=== PATIENT | female | born 1975 | race Caucasian/White ===

== ENCOUNTER 2020-11-22 12:42 | Outpatient (REF) | payer OTHER, SELFPAY ==
--- NOTE | 2020-11-22 | MM_ITS ---
EXAMINATION: MM SCREENING DIGITAL BREAST TOMOSYNTHESIS, BILATERAL CLINICAL INFORMATION: Screening. Asymptomatic. The lifetime risk of breast cancer based on the Tyrer-Cuzick Model is 9%. COMPARISON: Mammography: 03/31/2019, 03/22/2018 TECHNIQUE: Digital breast tomosynthesis is performed in both the craniocaudal and mediolateral oblique views along with computer-aided detection (CAD). Synthesized 2D images are generated from the tomosynthesis. FINDINGS: There are scattered areas of fibroglandular density (ACR BI-RADS breast composition Category b). There are no significant masses, abnormal calcifications, or other abnormalities. Parenchymal pattern is similar to prior exams. The skin contours are smooth. No significant changes. MM/MM tomosynthesis screening BI IMPRESSION: No mammographic evidence of malignancy. ASSESSMENT: BI-RADS 1: Negative RECOMMENDATION: Routine annual mammography screening. This patient's information was entered into a reminder system with a target due date for their next mammogram.
== END 2020-11-22 12:43 | disposition home or self-care (01) ==
LOC: HO.MAMMO 12:42
PROVIDERS: PCP Internal Medicine; Visit Provider Internal Medicine
DX: Z12.31 Encounter for screening mammogram for malignant neoplasm of breast (principal)
CPT/HCPCS: 77063; 77067

== ENCOUNTER 2020-12-25 10:43 | Outpatient (REF) | payer OTHER, SELFPAY ==
[2020-12-25 14:46] LABS: Alanine Aminotransferase 16 U/L (0-31); Anion Gap 13 (12-20); Aspartate Amino Transferase 15 U/L (5-31); Blood Urea Nitrogen 10 mg/dL (9-16); Calcium 9.1 mg/dL (8.4-10.2); Carbon Dioxide 24 mmol/L (22-29); Chloride 103 mmol/L (96-108); Cholesterol 204 mg/dL; Estimated Glomerular Filt Rate > 60; Glucose Fasting 73 mg/dL (60-99); HDL Cholesterol 61 mg/dL; LDL Cholesterol Calculated 122 mg/dl; Potassium 4.6 mmol/L (3.3-5.1); Sodium 135 mmol/L (135-145); Triglycerides 108 mg/dL
[2020-12-25 14:53] LABS: Vitamin D 25-OH Total 21.6 ng/mL (>30)
== END 2020-12-25 10:44 | disposition home or self-care (01) ==
LOC: HO.HMGCLDS 10:43
PROVIDERS: PCP Internal Medicine; Visit Provider Internal Medicine
DX: Z00.01 Encounter for general adult medical examination with abnormal findings (principal); I10 Essential (primary) hypertension
CPT/HCPCS: 36415; 80048; 80061; 82306; 84450; 84460

== ENCOUNTER 2021-06-02 15:05 | Emergency (ER) | payer OTHER, SELFPAY ==
--- NOTE | ~2021-06-02 | US_ITS ---
EXAMINATION: US ABDOMEN LIMITED CLINICAL INFORMATION: Right upper quadrant pain. COMPARISON: None TECHNIQUE: Real-time imaging of the right upper quadrant abdominal viscera. FINDINGS: PANCREAS: Normal. LIVER: The liver is normal in size. The liver contour is normal. Parenchymal echogenicity is normal. No focal hepatic lesion. There is no intrahepatic biliary duct dilatation seen. GALLBLADDER: There is cholelithiasis. There is prominence of the gallbladder wall measuring up to 4 mm with a question of a small amount of fluid within the wall. No pericholecystic fluid. COMMON BILE DUCT: Normal in caliber measuring 0.5 cm in diameter. RIGHT KIDNEY: Normal. No hydronephrosis. No renal calculi or focal parenchymal lesions. The kidney measures 12 cm in maximum dimension. FREE FLUID: None. US/US abdomen limited IMPRESSION: There is cholelithiasis with prominence of the gallbladder wall measuring up to 4 mm with question of a small amount of fluid within the wall. No pericholecystic fluid. The findings are equivocal for cholecystitis. Correlate with clinical exam. Consider surgical consultation and HIDA scan as clinically indicated.
[2021-06-02 16:29] VITALS: BP 145/87; PULSE 69; RESP 18; TEMP 36.8; O2SAT 98; BMI 32.8
[2021-06-02 19:03] LABS: Hematocrit 45.2 % (37-47); Hemoglobin 15.5 g/dl (12.0-16.0); Mean Corpuscular HGB Conc 34.3 g/dl (31.0-35.0); Mean Corpuscular Hemoglobin 29.8 pg (27.0-33.0); Mean Corpuscular Volume 86.8 fL (80-98); Platelet Count 288 X10*3/uL (160-400); Red Blood Count 5.21 X10*6/uL (4.20-5.50); Red Cell Distribution Width 13.8 % (11.0-16.0); White Blood Count 12.9 X10*3/uL (4.8-10.8)
--- NOTE | 2021-06-02 19:05 | ED_ITS ---
HPI - Abdominal Pain General Chief Complaint: Abdominal Pain Stated Complaint: ABDOMINAL PAIN Time Seen by Provider: 06/02/21 19:03 Source: patient Mode of arrival: ambulatory Limitations: no limitations History of Present Illness HPI narrative: 45 years old female came in for evaluation of abdominal pain. Abdominal pain started since 03:00, mostly in the epigastric/right upper quadrant area with radiation to the back, pain woke the patient up from sleep, pain has been constant all day, dull aching pain is moderate 6/10, pain is associated with nausea, vomiting, decreased appetite and decreased p.o. intake. Normal bowel movement, no urinary tract symptoms. Had similar pain in the past was diagnosed with gastritis. Related Data Previous Rx's Medication Instructions Recorded cholecalciferol (vitamin D3) 1,250 1,250 mcg PO QWEEK 90 Days #13 cap 12/25/20 mcg (50,000 unit) capsule fluticasone 250 mcg-salmeterol 50 1 inh INHALATION BID #60 ea 05/21/21 mcg/dose blistr powdr for inhalation (Wixela Inhub) albuterol sulfate 90 mcg/actuation 2 puff INHALATION Q6H PRN #8.5 g 06/02/21 aerosol inhaler (ProAir HFA) ciprofloxacin HCl 500 mg tablet 500 mg PO BID #14 tab 06/02/21 (Cipro) metronidazole 500 mg tablet 500 mg PO BID #14 tab 06/02/21 (Flagyl) Allergies Allergy/AdvReac Type Severity Reaction Status Date / Time No Known Allergies Allergy Verified 12/24/20 13:13 Review of Systems Review of Systems All other systems are reviewed and are negative Constitutional: Reports as per HPI and Reports no additional constitutional complaints Eyes: Reports as per HPI and Reports no additional eye complaints Reports system reviewed and no additional complaints, except as documented Cardiovascular: Reports as per HPI and Reports no additional cardiovascular complaints Respiratory: Reports as per HPI and Reports no additional respiratory complaints Gastrointestinal: Reports as per HPI and Reports no additional gastrointestinal complaints Genitourinary: Reports no additional female genitourinary complaints Musculoskeletal: Reports no additional musculoskeletal complaints Skin/Breast: Reports system reviewed and no additional complaints, except as docu Psychiatric: Reports no additional psychiatric complaints Endocrine: Reports no additional endocrine complaints Hematologic/Lymphatic: Reports no additional hematologic/lymphatic complaints Allergic/Immunologic: Reports no additional allergic/immunologic complaints Reports system reviewed and no additional complaints, except as documented and Reports Abnormal speech present Physical Exam Vital Signs: Vital Signs: Last Vital Signs Temp 98.3 F 06/02/21 19:11 Pulse 61 06/02/21 20:08 Resp 14 06/02/21 20:08 BP 124/62 06/02/21 20:08 Pulse Ox 97 06/02/21 20:08 Body Mass Index 32.8 Vital signs have been reviewed as appeared to be correct. Blood pressure normal. Heart rate normal. Respiration rate normal. Temperature normal. Oxygen saturation normal. Appearance: Alert. Oriented X3. No acute distress. Head: Normal external exam. Normocephalic. Atraumatic. No Garcia signs noted. No raccoon eyes noted Eyes: PERRLA. EOMI. Conjunctiva and sclera normal. Eyelids normal. ENT: TM's Normal. Pharynx normal. Uvula midline. Moist mucous membranes. No trismus noted. No drooling noted. No muffled voice noted. Neck: Normal inspection. Neck supple. FROM. No adenopathy. Thyroid Normal. No meningeal signs. No neck mass noted. CVS: Normal heart rate and rhythm. Heart sound normal. No murmurs noted. Pulses normal throughout. Respiratory: No respiratory distress. Painless inspiration. Breath sounds normal. No wheezes/rales/rhonchi noted. Chest nontender. No accessory muscle usage noted or decreased air movement noted. Abdomen: Soft, moderate tenderness in the epigastric/right upper quadrant area, no guarding, no rebound tenderness. Bowel sounds normal in all 4 quadrants. No distention noted. No organomegaly noted. No visible injury noted. Back: No CVA tenderness. Full range of motion noted. Skin: Skin warm and dry. Normal skin color. Normal skin turgor. No rashes/lesions/lacerations noted. Extremities: No lower extremity edema. Extremities exhibit normal range of motion. Extremities nontender. Neuro: Oriented X 3. No motor deficit. No sensory deficit. Reflexes normal. Course Course Course Narrative: Assessment and plan. 45-year-old female came in with upper abdominal pain/right upper quadrant pain since 03:00, labs are unremarkable, physical exam/ultrasound consistent with cholelithiasis with biliary colic, ultrasound is questioning presence of cholecystitis. Will start the patient on antibiotic, the case discussed with Dr. Pollard who recommended to see the patient as an outpatient to discuss her option. Patient is able to tolerate p.o. intake. Patient agreed on the plan. MDM - Abdominal Pain Lab Data Attestation: I reviewed the patient's lab results. Result diagrams: 06/02/21 18:58 06/02/21 18:58 Labs: Lab Results 06/02/21 06/02/21 06/02/21 Range/Units 18:58 18:58 19:15 WBC 12.9 H (4.8-10.8) X10*3/uL RBC 5.21 (4.20-5.50) X10*6/uL Hgb 15.5 (12.0-16.0) g/dl Hct 45.2 (37-47) % MCV 86.8 (80-98) fL MCH 29.8 (27.0-33.0) pg MCHC 34.3 (31.0-35.0) g/dl RDW 13.8 (11.0-16.0) % Plt Count 288 (160-400) X10*3/uL MPV 11.0 (9.4-12.3) fL Absolute Nucleated RBC 0.000 (0.0-0.012) X10*3/uL Nucleated RBC % (auto) 0.0 (0.0-0.2) /100WBC Sodium 138 (135-145) mmol/L Potassium 4.3 (3.3-5.1) mmol/L Chloride 106 (96-108) mmol/L Carbon Dioxide 21 L (22-29) mmol/L Anion Gap 15 (12-20) BUN 7 L (9-16) mg/dL Creatinine 0.74 (0.5-1.4) mg/dL Estim Creat Clear Calc 112.5 Estimated GFR > 60 Random Glucose 87 (60-115) mg/dL Calcium 9.8 D (8.4-10.2) mg/dL Total Bilirubin 0.9 (0.0-1.0) mg/dL Direct Bilirubin 0.3 (0.0-0.5) mg/dL AST 14 (5-31) U/L ALT 12 (0-31) U/L Alkaline Phosphatase 82 (39-117) U/L Total Protein 7.5 (6.5-8.0) g/dL Albumin 4.7 (3.5-5.0) g/dL Lipase 9 (8-78) U/L Urine Color YELLOW Urine Appearance CLEAR Urine pH 7.0 (5.0-8.0) Ur Specific Hixson 1.025 (1.005-1.025) Urine Protein 1+ H (NEG-TRACE) MG/DL Urine Glucose (UA) NEG (NEG) MG/DL Urine Ketones NEG (NEG) MG/DL Urine Blood NEG (NEG) Urine Nitrite NEG (NEG) Ur Leukocyte Esterase 2+ H (NEG) Urine RBC 0 (0) /HPF Urine WBC 5-9 H (0-4) /HPF Ur Squamous Epith Cells 1+ /LPF Urine Bacteria 1+ /LPF Imaging Data Gallbladder ultrasound: Radiologist's impression: There is cholelithiasis with prominence of the gallbladder wall measuring up to 4 mm with question of a small amount of fluid within the wall. No pericholecystic fluid. The findings are equivocal for cholecystitis. Correlate with clinical exam. Consider surgical consultation and HIDA scan as clinically indicated. Discharge Plan Discharge Clinical Impression: Colic, biliary Cholelithiasis Qualifiers: Cholelithiasis location: gallbladder Cholecystitis presence: with cholecystitis Cholecystitis acuity: acute Biliary obstruction: without biliary obstruction Qualified Code(s): K80.00 - Calculus of gallbladder with acute cholecystitis without obstruction Patient Disposition: Home, Self-Care Instructions: Biliary Colic (ED) Prescriptions: New ciprofloxacin HCl [Cipro] 500 mg tablet 500 mg PO BID Qty: 14 RF: 0 metronidazole [Flagyl] 500 mg tablet 500 mg PO BID Qty: 14 RF: 0 No Action cholecalciferol (vitamin D3) 1,250 mcg (50,000 unit) capsule 1,250 mcg PO QWEEK 90 Days Qty: 13 RF: 0 fluticasone propion-salmeterol [Wixela Inhub] 250-50 mcg/dose blister with device 1 inh inhalation BID Qty: 60 RF: 0 albuterol sulfate [ProAir HFA] 90 mcg/actuation HFA aerosol inhaler 2 puff inhalation Q6H PRN (Reason: shortness of breath or wheezing) Qty: 8.5 RF: 5 Referrals: Roderick Pollard MD [Physician] - 2 days [facility] Past Medical History Medical History Mild intermittent asthma Obesity (BMI 30.0-34.9) Surgical History History of tonsillectomy Family History Family History Father Diabetes mellitus Dyslipidemia Cancer of prostate CVD (cardiovascular disease) HTN (hypertension) Myocardial infarction Mother Dyslipidemia Maternal Grandmother No problems noted. Maternal Grandfather Alzheimer's disease Paternal Grandmother No problems noted. Paternal Grandfather Diabetes mellitus CAD (coronary artery disease) Brother No problems noted. Son No problems noted. Daughter No problems noted. Daughter No problems noted. Daughter No problems noted. Social History Social History Alcohol intake: never Advance Directives: No Advance Directives Information Provided: Yes Patient : No
[2021-06-02 19:11] VITALS: BP 138/70; PULSE 63; RESP 18; TEMP 36.8; O2SAT 97
[2021-06-02 19:20] LABS: Glucose Urine UA NEG (NEG); Leukocyte Esterase Urine 2+ (NEG); Nitrite Urine NEG (NEG); Specific Gravity - Urine 1.025 (1.005-1.025); UACC Culture Trigger YES; Urine Blood NEG (NEG); Urine Ketones NEG (NEG); Urine Protein 1+ MG/DL (NEG-TRACE)
[2021-06-02 19:22] LABS: Appearance Urine CLEAR; Color Urine YELLOW
[2021-06-02 19:27] LABS: Bacteria Urine 1+ /LPF; RBC Urine 0 /HPF (0); Squamous Epithelial Cell Urine 1+ /LPF
[2021-06-02 19:33] LABS: Alanine Aminotransferase 12 U/L (0-31); Albumin Level 4.7 g/dL (3.5-5.0); Alkaline Phosphatase 82 U/L (39-117); Anion Gap 15 (12-20); Aspartate Amino Transferase 14 U/L (5-31); Bilirubin Direct 0.3 mg/dL (0.0-0.5); Bilirubin Total 0.9 mg/dL (0.0-1.0); Blood Urea Nitrogen 7 mg/dL (9-16); Calcium 9.8 mg/dL (8.4-10.2); Carbon Dioxide 21 mmol/L (22-29); Chloride 106 mmol/L (96-108); Creatinine Clr Calc Pharmacy 112.5; Estimated Glomerular Filt Rate > 60; Glucose Random 87 mg/dL (60-115); Lipase 9 U/L (8-78); Potassium 4.3 mmol/L (3.3-5.1); Sodium 138 mmol/L (135-145); Total Protein 7.5 g/dL (6.5-8.0)
[2021-06-02 20:08] VITALS: BP 124/62; PULSE 61; RESP 14; O2SAT 97
[2021-06-02] MEDS: Morphine Sulfate 2 MG/ML CARTRIDGE 1 MG IVPUSH (20:15)
[2021-06-02] MEDS: Ketorolac Tromethamine 15 MG/ML VIAL IVPUSH (20:15)
== END 2021-06-02 21:28 | disposition home or self-care (01) ==
PROVIDERS: Emergency Provider Emergency Medicine; PCP Internal Medicine
DX: K80.00 Calculus of gallbladder with acute cholecystitis without obstruction (principal)
CPT/HCPCS: 36415; 76705; 80048; 80076; 81001; 83690; 85027; 87086; 96374; 96375; 99284; J1885; J2270

== ENCOUNTER → 2021-06-26 15:57 | Outpatient (BNVA) | payer OTHER, SELFPAY | PROVIDERS: PCP Internal Medicine; Referring Provider Internal Medicine; Visit Provider Surgery ==

== ENCOUNTER 2021-08-04 06:00 | Day surgery (SDC) | payer OTHER, SELFPAY ==
[2021-07-29 09:52] VITALS: BMI 31.7
[2021-08-04] VITALS (8 sets, daily range): BP systolic 102–119; BP diastolic 61–83; PULSE 61–77; RESP 14–16; TEMP 36.4; O2SAT 93–98
[2021-08-04 06:28] LABS: UPreg QC Valid YES; Urine Pregnancy NEGATIVE (NEGATIVE)
[2021-08-04] MEDS: Lactated Ringers 1,000 ML 100 ML IVCONT (06:43)
--- NOTE | 2021-08-04 07:07 | P.CONAN_ITS ---
HPI - Anesthesia Eval Consult details Narrative: baseline cond [facility] Active Problems Active Problems: All Active Problems (Updated 07/29/21 @ 09:49 by Letha Shannon RN) Right upper quadrant pain (Acute) Cholecystitis (Acute) Obesity (BMI 30.0-34.9) (Acute) Mild intermittent asthma (Acute) Past Medical History Medical History COVID-19 vaccine series completed Mild intermittent asthma Obesity (BMI 30.0-34.9) Family History Family History Father Diabetes mellitus Dyslipidemia Cancer of prostate CVD (cardiovascular disease) HTN (hypertension) Myocardial infarction Mother Dyslipidemia Maternal Grandmother No problems noted. Maternal Grandfather Alzheimer's disease Paternal Grandmother No problems noted. Paternal Grandfather Diabetes mellitus CAD (coronary artery disease) Brother No problems noted. Son No problems noted. Daughter No problems noted. Daughter No problems noted. Daughter No problems noted. Surgical History Surgical History History of tonsillectomy Social History Social History Alcohol intake: never Advance Directives Information Provided: Yes (informational brochure mailed) Recently lost weight without trying: No Eating poorly because of decreased appetite: No Nutrition Risks: No Nutritional Risk Meds Allergies Allergy/AdvReac Type Severity Reaction Status Date / Time No Known Allergies Allergy Verified 06/19/21 16:19 Active Medications: Current Medications Lactated Ringer's (Lr) 1,000 mls @ 100 mls/hr IVCONT .Q10H JOHN PAUL Last Admin: 08/04/21 06:43 Dose: 100 mls/hr Documented by: Exam Exam Date and Time: August 04, 2021 0707 Height,Weight and Vital Signs: Height 5 ft 7 in Weight 92 kg Last Vital Signs Temp 97.6 F 08/04/21 06:38 Pulse 66 08/04/21 06:38 Resp 16 08/04/21 06:38 BP 105/66 08/04/21 06:38 Pulse Ox 97 08/04/21 06:38 Pertinent Lab Results Pertinent Lab Results: Laboratory Tests 08/04/21 06:10 Urine Test NEGATIVE Airway Mallampati Class: I TM Dist: >3cm Neck ROM: Full
--- NOTE | 2021-08-04 07:27 | MHC.SHP ---
Pre-Procedural Eval Section A Date of Service: 08/04/21 The patient is an INPATIENT: No Changes since office visit: Yes Patient answered all questions; No Cold of Flu in the past 2 weeks, No New Medical Problems and No Changes in Medication The History & Physical has been completed within 30 days and I have reviewed it.: Yes Section B Chief Complaint: Acute cholecystitis Allergies: Allergies Allergy/AdvReac Type Severity Reaction Status Date / Time No Known Allergies Allergy Verified 06/19/21 16:19 Plan Diagnosis/Plan: Unchanged I have reviewed the history and physical and performed a pertinent physical examination on my patient. No changes have occurred unless specified.
--- NOTE | 2021-08-04 09:03 | P.OP_ITS ---
Operative Note Operative Note Date of Service: 08/04/21 Narrative: Preoperative diagnosis: Cholecystitis, cholelithiasis Postoperative diagnosis: Same Procedure: Laparoscopic cholecystectomy Surgeon: Roderick Pollard MD Senior Sustainability Consultant: EDEN Gonzalez Anesthesia: General endotracheal Indications for procedure: 45-year-old female patient presenting with a single episode of abdominal pain in the right upper quadrant presenting to the emergency department with severe pain. Workup in the emergency department revealed a thickened gallbladder with multiple gallstones within the gallbladder wall. Findings were suggestive of acute cholecystitis. Operative findings: Patient was found to have a markedly inflamed gallbladder with edematous wall and multiple gallstones within the gallbladder. Findings are consistent with acute cholecystitis Specimen: Gallbladder Estimated blood loss: 5 mL Complications: None Procedure details: Patient was brought to the OR and placed in a supine position. After administering general anesthesia the patient's abdomen was prepped with ChloraPrep and draped in a sterile fashion. Local anesthesia consisting of 0.25% Sensorcaine without epinephrine was infiltrated in a periumbilical region. A 5 mm incision was made above the umbilicus in a transverse fashion. The Veress needle was then inserted while elevating abdominal cavity with towel clips. After positive drop test the abdomen was insufflated to a pressure of 15 mm of mercury. The Veress needle was then removed and a 5 mm trocar inserted. The camera was inserted in the abdomen explored. A 12 mm trocar was then placed in the epigastrium and two 5 mm trocars placed in the right upper quadrant. The patient was placed in reverse Trendelenburg positioning and rotated to the left. The gallbladder was grasped with the fundus and retracted cephalad. The infundibulum was then grasped and retracted away from the liver bed. The Dolphin dissected was then used to dissect the peritoneum off the infundibulum to reveal the junction with the cystic duct. Cystic artery was noted slightly medial and posterior to the cystic duct. After obtaining a critical view the cystic duct was doubly clipped and divided. The cystic artery was then doubly clipped and divided. The gallbladder was then dissected off the liver bed using electrocautery with an L hook. Hemostasis was assured all times using the electrocautery. When the gallbladder is completely dissected off the liver bed was placed in an Endo-Catch bag and brought out through the epigastric incision. The gallbladder was sent to pathology for further examination. The abdomen was then re-examined. The liver bed was irrigated and suctioned dry. No bleeding or bile leak could be identified. CO2 was then evacuated and all trocars removed. Fascia was closed at the epigastric incision using a [id number] 0 Polysorb suture. Skin was closed in all incisions using a subcuticular 4 0 Polysorb suture. Sterile dressings consisting of Steri-Strips, 2 x 2 gauze, and Tegaderm were then applied. The patient tolerated the procedure well. Sponge instrument and needle counts reported as correct. The patient was transferred to PACU in stable condition.
[2021-08-04] MEDS: fentaNYL citrate/PF 100 MCG/2 ML VIAL 50 MCG IVPUSH ×2 (09:25→09:35)
[2021-08-04] MEDS: oxyCODONE HCl Immed Release 5 MG TABLET PO (09:26)
== END 2021-08-04 11:03 | disposition home or self-care (01) ==
PROVIDERS: Anesthesiology; PCP Internal Medicine; Visit Provider Surgery
PROC: 0FT44ZZ Resection of Gallbladder, Percutaneous Endoscopic Approach (ICD-10-PCS; CPT 47562; principal; 2021-08-04 07:30)
DX: K80.12 Calculus of gallbladder with acute and chronic cholecystitis without obstruction (principal); J45.20 Mild intermittent asthma, uncomplicated
CPT/HCPCS: 47562; 81025; 88304; J1100; J1170; J2250; J2405; J3010

== ENCOUNTER → 2021-08-14 10:56 | Outpatient (BNVA) | payer OTHER, SELFPAY | PROVIDERS: PCP Internal Medicine; Referring Provider Internal Medicine; Visit Provider Surgery ==

== ENCOUNTER 2022-01-02 09:13 | Outpatient (REF) | payer OTHER, SELFPAY ==
--- NOTE | ~2022-01-02 | MM_ITS ---
EXAMINATION: MM SCREENING DIGITAL BREAST TOMOSYNTHESIS, BILATERAL CLINICAL INFORMATION: Screening. Asymptomatic. The lifetime risk of breast cancer based on the Tyrer-Cuzick Model is 9%. COMPARISON: Mammography: 11/22/2020, 03/31/2019, 03/22/2018, 03/19/2017, 03/06/2016, 02/22/2015 (baseline). TECHNIQUE: Digital breast tomosynthesis is performed in both the craniocaudal and mediolateral oblique views along with computer-aided detection (CAD). Synthesized 2D images are generated from the tomosynthesis. Additional left CC view is provided. FINDINGS: There are scattered areas of fibroglandular density (ACR BI-RADS breast composition Category b). Right breast is unremarkable. There is no developing density or interval mass or architectural abnormality. Neither breast shows abnormal calcifications. The bilateral axilla and skin contours are unremarkable. Left CC view has questionable architectural changes mid outer breast 9.5 cm from nipple. There is no MLO correlate. Finding appears changed from most recent prior exam but may be chronic shifting fibroglandular density when compared with more remote prior mammography. Patient will be recalled for additional imaging. MM/MM tomosynthesis screening BI IMPRESSION: 1. Left: Question of architectural changes mid outer quadrant limited to CC view. 2. Right: No mammographic evidence of malignancy. ASSESSMENT: BI-RADS 0: Incomplete - Need Additional Imaging Evaluation RECOMMENDATION: 1. Additional views of the left breast (rolled CC x2, spot CC). 2. Targeted ultrasound if warranted after review of the additional views. 3. Radiology department staff will contact the patient for additional imaging. This patient's information was entered into a reminder system with a target due date for their next mammogram.
== END 2022-01-02 09:14 | disposition home or self-care (01) ==
LOC: HO.MAMMO 09:13
PROVIDERS: PCP Internal Medicine; Visit Provider Internal Medicine
DX: Z12.31 Encounter for screening mammogram for malignant neoplasm of breast (principal)
CPT/HCPCS: 77063; 77067

== ENCOUNTER 2022-01-16 14:03 | Outpatient (REF) | payer OTHER, SELFPAY ==
--- NOTE | ~2022-01-16 | MM_ITS ---
EXAMINATION: MM DIAGNOSTIC DIGITAL BREAST TOMOSYNTHESIS, LEFT CLINICAL INFORMATION: Recall from screening for question of architectural changes mid outer left breast on CC view. Age 46. TC score 9%. COMPARISON: Mammography: 01/02/2022, 11/22/2020, 03/31/2019, 03/22/2018, 03/19/2017, 03/06/2016, 02/22/2015 TECHNIQUE: Digital breast tomosynthesis is performed. 2D images are generated from the tomosynthesis. The following views are obtained: Rolled CC x2, spot CC. FINDINGS: There are scattered areas of fibroglandular density (ACR BI-RADS breast composition Category b). The additional views show no focal architectural changes. There is no definite developing density from prior studies. No mass. Results are discussed with the patient at time of visit. The additional views show no focal architectural changes. As a precaution, short interval six-month follow-up left mammography is suggested to exclude remote possibility of an occult developing density. MM/MM tomosynthesis added views L IMPRESSION: Additional views show no definite changes from prior studies. ASSESSMENT: BI-RADS 3: Probably Benign RECOMMENDATION: Diagnostic left mammography in 6 months. This patient's information was entered into a reminder system with a target due date for their next mammogram.
== END 2022-01-16 14:04 | disposition home or self-care (01) ==
LOC: HO.MAMMO 14:03
PROVIDERS: PCP Internal Medicine; Visit Provider Internal Medicine
DX: N64.89 Other specified disorders of breast (principal)
CPT/HCPCS: 77061; 77065

== ENCOUNTER 2022-11-17 13:03 | Emergency (ER) | payer OTHER, SELFPAY ==
--- NOTE | ~2022-11-17 | XR_ITS ---
EXAMINATION: XR KNEE, RIGHT CLINICAL INFORMATION: Right knee pain. COMPARISON: None TECHNIQUE: Four views of the right knee. FINDINGS: Mild tricompartmental degenerative joint changes are seen. There is no acute fracture, dislocation or joint effusion. The soft tissues are unremarkable. XR/XR knee RT 4V IMPRESSION: Mild tricompartmental degenerative joint changes. No acute fracture.
[2022-11-17 14:21] VITALS: BP 122/58; PULSE 69; RESP 18; TEMP 36.3; O2SAT 96; BMI 32.8
--- NOTE | 2022-11-17 14:23 | ED_ITS ---
HPI - General Adult General Chief complaint: Extremity Injury, Lower <BHARTI Power - Last Filed: 11/17/22 19:49> Stated complaint: R knee pain <BHARTI Power - Last Filed: 11/17/22 19:49> Time Seen by Provider: 11/17/22 14:53 <BHARTI Power - Last Filed: 11/17/22 19:49> Source: patient <BHARTI Mayes Last Filed: 11/17/22 17:43> Mode of arrival: ambulatory <BHARTI Mayes Last Filed: 11/17/22 17:43> Limitations: no limitations <BHARTI Mayes Last Filed: 11/17/22 17:43> History of Present Illness HPI narrative: Patient is a 46 year old assigned female at with no reported medical history presenting to the emergency department today with right knee pain. Patient states that she doesn't remember doing anything specifically to the right knee but over the last week it has gotten progressively worse. Patient denies any dizziness, lightheadedness, abdominal pain, nausea, vomiting, fever, chills, blurry vision, double vision, loss of vision, chest pain, difficulty breathing, shortness of breath, back pain, night sweats, pain with urination, increased urinary frequency, increased urinary urgency, blood in her urine or stool, syncope or a near syncopal episode, recent trauma or falls, bowel incontinence, bladder incontinence, bowel retention, bladder retention, or any other complaints at this time. Patient states that she is a [employer] and is on her feet all the time. <BHARTI Mayes - Last Filed: 11/17/22 17:43> Onset (ago): week(s) (1) <BHARTI Mayes - Last Filed: 11/17/22 17:43> Location: right and lower extremity <BHARTI Mayes Last Filed: 11/17/22 17:43> Radiation: non-radiation <BHARTI Mayes Last Filed: 11/17/22 17:43> Severity: mild <BHARTI Mayes Last Filed: 11/17/22 17:43> Severity scale (1-10): 3 <BHARTI Mayse Last Filed: 11/17/22 17:43> Quality: aching <BHARTI Mayes - Last Filed: 11/17/22 17:43> Pain Consistency: constant <BHARTI Mayes - Last Filed: 11/17/22 17:43> Relieving factors: none <BHARTI Mayes - Last Filed: 11/17/22 17:43> Exacerbating factors: none <BHARTI Mayes - Last Filed: 11/17/22 17:43> Associated symptoms: denies other symptoms <BHARTI Mayse - Last Filed: 11/17/22 17:43> Treatments prior to arrival: none <BHARTI Mayes - Last Filed: 11/17/22 17:43> Related Data Home medications: Previous Rx's Medication Instructions Recorded oxycodone 5 mg tablet 5 mg PO Q6H PRN pain #15 tabs 08/04/21 fluticasone 250 mcg-salmeterol 50 1 inh inhalation BID #180 ea 09/15/22 mcg/dose blistr powdr for inhalation (Wixela Inhub) albuterol sulfate 90 mcg/actuation 2 puff inhalation Q6H PRN 10/21/22 aerosol inhaler (ProAir HFA) shortness of breath or wheezing #8.5 grams prednisone 20 mg tablet 20 mg PO DAILY 7 days #7 tabs 11/17/22 <BHARTI Power - Last Filed: 11/17/22 19:49> Allergies/adverse reactions: Allergies Allergy/AdvReac Type Severity Reaction Status Date / Time No Known Allergies Allergy Verified 06/19/21 16:19 <BHARTI Power - Last Filed: 11/17/22 19:49> Review of Systems Constitutional: Constitutional: Reports no additional constitutional complaints, Denies chills, Denies fever(s) and Denies night sweats <BHARTI Mayes - Last Filed: 11/17/22 17:43> Eyes: Eyes: Reports no additional eye complaints, Denies blurry vision, Denies change in vision, Denies diplopia, Denies eye discharge, Denies loss of vision and Denies eye pain <BHARTI Mayes Last Filed: 11/17/22 17:43> ENT: Denies dizziness <BHARTI Mayes - Last Filed: 11/17/22 17:43> Cardiovascular: Cardiovascular: Reports no additional cardiovascular complaints, Denies chest pain, Denies lightheadedness, Denies Loss of Consciousness and Denies dyspnea <BHARTI Mayes - Last Filed: 11/17/22 17:43> Respiratory: Respiratory: Reports no additional respiratory complaints and Denies dyspnea <BHARTI Mayes - Last Filed: 11/17/22 17:43> Gastrointestinal: Gastrointestinal: Reports no additional gastrointestinal complaints, Denies abdominal pain, Denies melena, Denies hematochezia, Denies change in bowel habits and Denies change in stool character <BHARTI Mayes - Last Filed: 11/17/22 17:43> Genitourinary: Genitourinary: Denies hematuria, Denies urinary frequency, Denies dysuria, Denies urinary incontinence, Denies urinary hesitancy and Denies urinary urgency <BHARTI Mayes - Last Filed: 11/17/22 17:43> Musculoskeletal: Musculoskeletal: Reports no additional musculoskeletal complaints, Denies numbness and Denies tingling <BHARTI Mayes - Last Filed: 11/17/22 17:43> Comments: right knee pain <BHARTI Mayes - Last Filed: 11/17/22 17:43> Neurologic: Denies dizziness, Denies loss of vision, Denies numbness and Denies tingling <BHARTI Mayes - Last Filed: 11/17/22 17:43> Psychiatric: Psychiatric: Reports no additional psychiatric complaints <BHARTI Mayes - Last Filed: 11/17/22 17:43> Endocrine: Endocrine: Reports no additional endocrine complaints <BHARTI Mayes - Last Filed: 11/17/22 17:43> Hematologic/Lymphatic: Hematologic/Lymphatic: Reports no additional hematologic/lymphatic complaints <BHARTI Mayes - Last Filed: 11/17/22 17:43> Allergic/Immunologic: Allergic/Immunologic: Reports no additional allergic/immunologic complaints <BHARTI Mayes - Last Filed: 11/17/22 17:43> PMFSH Past Medical History Attestation statement: The following information was validated with the patient. <BHARTI Mayes - Last Filed: 11/17/22 17:43> Source: old records reviewed and nursing notes reviewed <BHARTI Mayes - Last Filed: 11/17/22 17:43> Medical History: Medical History COVID-19 vaccine series completed Mild intermittent asthma Obesity (BMI 30.0-34.9) <BHARTI Power - Last Filed: 11/17/22 19:49> Surgical History: Surgical History History of tonsillectomy <BHARTI Power - Last Filed: 11/17/22 19:49> Family History Family History: Family History Father Diabetes mellitus Dyslipidemia Cancer of prostate CVD (cardiovascular disease) HTN (hypertension) Myocardial infarction Mother Dyslipidemia Maternal Grandmother No problems noted. Maternal Grandfather Alzheimer's disease Paternal Grandmother No problems noted. Paternal Grandfather Diabetes mellitus CAD (coronary artery disease) Brother No problems noted. Son No problems noted. Daughter No problems noted. Daughter No problems noted. Daughter No problems noted. <BHARTI Power - Last Filed: 11/17/22 19:49> Social History Social History: Social History Alcohol intake: never Smoked in Last 30 Days: Yes Advance Directives: No Advance Directives Information Provided: Yes Patient : No <BHARTI Power - Last Filed: 11/17/22 19:49> Physical Exam ED Vital Signs: Vital Signs - 24 hr 11/17/22 14:21 11/17/22 15:07 Temperature 97.3 F 98.3 F Pulse Rate 69 Respiratory Rate 18 18 Blood Pressure 122/58 L 129/71 Pulse Oximetry 96 98 Oxygen Delivery Method Room Air Room Air BMI result Body Mass Index 32.8 <BHARTI Power - Last Filed: 11/17/22 19:49> Vital Signs - 24 hr 11/17/22 14:21 11/17/22 15:07 Temperature 97.3 F 98.3 F Pulse Rate 69 Respiratory Rate 18 18 Blood Pressure 122/58 L 129/71 Pulse Oximetry 96 98 Oxygen Delivery Method Room Air Room Air BMI result Body Mass Index 32.8 <BHARTI Mayes - Last Filed: 11/17/22 17:43> Const General: cooperative, no acute distress, alert and awake <BHARTI Mayes - Last Filed: 11/17/22 17:43> Nutritional Appearance: well nourished <BHARTI Mayes - Last Filed: 11/17/22 17:43> Orientation/consciousness: patient oriented x3 <BHARTI Mayes - Last Filed: 11/17/22 17:43> Limitations: no limitations <BHARTI Mayes - Last Filed: 11/17/22 17:43> HENMT Head: Yes normal to inspection and Yes atraumatic <BHARTI Mayes - Last Filed: 11/17/22 17:43> Ears: hearing grossly normal bilaterally and external ears normal <BHARTI Mayes - Last Filed: 11/17/22 17:43> General nose exam: Normal external nose present, no nasal discharge noted and no epistaxis <BHARTI Mayes - Last Filed: 11/17/22 17:43> Face and sinus: Yes normal facial exam, No abrasion and No laceration <BHARTI Mayes - Last Filed: 11/17/22 17:43> Mouth: Normal oral and palatal mucosa present, no drooling and no muffled voice <BHARTI Mayes - Last Filed: 11/17/22 17:43> Eyes General: appearance normal, both eyes and all related structures <BHARTI Mayes - Last Filed: 11/17/22 17:43> Periorbital: periorbital findings normal <BHARTI Mayes - Last Filed: 11/17/22 17:43> Eyelids: Yes eyelids normal <BHARTI Mayes - Last Filed: 11/17/22 17:43> Conjunctivae: conjunctivae normal <BHARTI Mayes - Last Filed: 11/17/22 17:43> Pupils: Equal, round and reactive pupils present <BHARTI Mayes - Last Filed: 11/17/22 17:43> EOM: EOMs intact bilaterally <BHARTI Mayes - Last Filed: 11/17/22 17:43> Neck Neck: Yes normal visual inspection, Yes full ROM and Yes no lymphadenopathy <Kylah Chahal PA - Last Filed: 11/17/22 17:43> Chest Chest palpation & inspection: normal inspection of the chest <Kylah Chahal PA - Last Filed: 11/17/22 17:43> Resp Effort & Inspection: normal respiratory effort and able to speak in complete sentences <Kylah Chahal PA - Last Filed: 11/17/22 17:43> Auscultation: clear to auscultation bilaterally <Kylah Chahal PA - Last Filed: 11/17/22 17:43> Cardio Rate: regular rate <Kylah Chahal PA - Last Filed: 11/17/22 17:43> Rhythm: regular rhythm <Kylah Chahal PA - Last Filed: 11/17/22 17:43> GI Inspection: Yes normal to inspection <Kylah ChahalBHARTI - Last Filed: 11/17/22 17:43> Palpation (GI): Soft to palpation, not firm, nontender, no guarding and not rigid <Kylah Chahal PA - Last Filed: 11/17/22 17:43> Neuro General: patient oriented x3 and moves all extremities <Kylah Ramirezjean PA - Last Filed: 11/17/22 17:43> Cranial nerves: Yes Equal, round and reactive pupils present <Kylah Chahal PA - Last Filed: 11/17/22 17:43> Cognition (Neuro): normal cognition <Kylah Ramirezjean PA - Last Filed: 11/17/22 17:43> Motor exam (neuro): 5/5 motor strength present throughout <Kylah Chahal PA - Last Filed: 11/17/22 17:43> Sensory Exam: Normal double simultaneous stimulation for sensation <Kylah Ramirezjean PA - Last Filed: 11/17/22 17:43> Coordination: [id number] test normal <Kylah Chahal PA - Last Filed: 11/17/22 17:43> Extrem Other: palpated a cystic structre in the right posterior knee, consistent with a bakers cyst <Kylah Tirso PA - Last Filed: 11/17/22 17:43> General: Yes normal to inspection, Yes full ROM and Yes capillary refill normal <BHARTI Mayes - Last Filed: 11/17/22 17:43> Psych Appearance: grossly normal <BHARTI Mayes - Last Filed: 11/17/22 17:43> Mental Status: mental status grossly normal <BHARTI Mayes Last Filed: 11/17/22 17:43> Affect: normal affect <BHARTI Mayes - Last Filed: 11/17/22 17:43> Attitude: cooperative <BHARTI Mayes - Last Filed: 11/17/22 17:43> Thought process: Normal thought process present <BHARTI Mayes Last Filed: 11/17/22 17:43> Thought content: Normal thought content present <BHARTI Mayes Last Filed: 11/17/22 17:43> Insight: Good insight present (Psych) <BHARTI Mayes Last Filed: 11/17/22 17:43> Course Course Course Narrative: RME: RIght knee pain for one week without any trauma. negative for any swelling, redness, fever, chills, calf pain, or leg swelling. Knee xray ordered <BHARTI Power - Last Filed: 11/17/22 19:49> Medical Decision Making Medical Decision Making MDM Narrative: Patient is a 46 year old assigned female at with no reported medical history presenting to the emergency department today with right knee pain. Patient's physical exam showed a cyst like structure to the posterior right knee, consistent with a bakers cyst. Patient's right knee x-ray showed no acute process. I explained my physical exam findings as well as all test results to the patient. I answered all questions asked by the patient. I stressed the importance of the patient taking her medication as prescribed. I stressed the importance of the patient following up with her primary care provider and an orthopedic provider. I stressed the importance of the patient returning to the emergency department immediately if her symptoms were to worsen or if she were to develop any dizziness, shortness of breath, difficulty breathing, chest pain, blurry vision, loss of vision, nausea, vomiting, abdominal pain, fever, chills, back pain, or any other complaints. Patient verbalized agreement and understanding with this treatment plan and discharge. <BHARTI Mayes Last Filed: 11/17/22 17:43> Differential Diagnosis Differential Diagnoses: The differential diagnosis associated with the presentation includes <BHARTI Mayes Last Filed: 11/17/22 17:43> metz's cyst <BHARTI Mayes Last Filed: 11/17/22 17:43> Radiology Impression Discussion of test interpretation with radiology: I have reviewed the radiologist's reading. <BHARTI Mayes Last Filed: 11/17/22 17:43> Radiologist Impression: My interpretation is in agreement with the radiologist's impression of this imaging study. EXAMINATION: XR KNEE, RIGHT? CLINICAL INFORMATION: Right knee pain.? COMPARISON: None? TECHNIQUE: Four views of the right knee. FINDINGS: Mild tricompartmental degenerative joint changes are seen. There is no acute fracture, dislocation or joint effusion. The soft tissues are unremarkable.? XR/XR knee RT 4V IMPRESSION: Mild tricompartmental degenerative joint changes. No acute fracture. ? Dictated By: Jose Elizabeth MD Signed By: Electronically signed by Jose Elizabeth MD 11/17/22 1538 <BHARTI Mayes Last Filed: 11/17/22 17:43> Discharge Plan Discharge Clinical Impression: Metz cyst <BHARTI Power Last Filed: 11/17/22 19:49> Patient Disposition: Home, Self-Care <BHARTI Power Last Filed: 11/17/22 19:49> Instructions: Bakers Cyst (ED) <BHARTI Power Last Filed: 11/17/22 19:49> Additional Instructions: Follow up with your primary care provider and an orthopedic provider. Return to the emergency department immediately if your symptoms worsen or if you develop any dizziness, shortness of breath, difficulty breathing, chest pain, blurry vision, loss of vision, nausea, vomiting, abdominal pain, fever, chills, back pain, or any other complaints. <BHARTI Power - Last Filed: 11/17/22 19:49> Prescriptions: New prednisone 20 mg tablet 20 mg PO DAILY 7 Days Qty: 7 0RF No Action fluticasone propion-salmeterol [Wixela Inhub] 250-50 mcg/dose blister with device 1 inh inhalation BID Qty: 180 0RF albuterol sulfate [ProAir HFA] 90 mcg/actuation HFA aerosol inhaler 2 puff inhalation Q6H PRN (Reason: shortness of breath or wheezing) Qty: 8.5 5RF oxycodone 5 mg tablet 5 mg PO Q6H PRN (Reason: pain) Qty: 15 0RF <BHARTI Power - Last Filed: 11/17/22 19:49> Referrals: [facility] [place] [facility] [Provider Group] (Call to establish and follow up with an orthopedic provider. ) Karuna Manning MD [Primary Care Provider] - <BHARTI Power - Last Filed: 11/17/22 19:49> Stand Alone Forms: Work/School Release <BHARTI Power - Last Filed: 11/17/22 19:49> Interventions: ED Discharge Assessment Last Done: 11/17/22 15:29 <BHARTI Power - Last Filed: 11/17/22 19:49> Discharge Date/Time: 11/17/22 15:30 <BHARTI Power - Last Filed: 11/17/22 19:49> Print Language: Kiswahili <BHARTI Power - Last Filed: 11/17/22 19:49>
[2022-11-17 15:07] VITALS: BP 129/71; RESP 18; TEMP 36.8; O2SAT 98
== END 2022-11-17 15:30 | disposition home or self-care (01) ==
PROVIDERS: Emergency Provider Emergency Medicine; PCP Internal Medicine
DX: M71.21 Synovial cyst of popliteal space [Baker], right knee (principal); M25.561 Pain in right knee
CPT/HCPCS: 73564; 99283; 99284

== ENCOUNTER 2022-12-18 12:34 | Outpatient (AMB) | payer OTHER, SELFPAY ==
--- NOTE | 2022-12-18 12:39 | A.OFFPC_ITS ---
Vital Signs 12/18/22 12:40 Height 5 ft 7 in Weight 214 lb BMI 33.5 BP 100/70 Blood Pressure Location Rt brachial Position Sitting Pulse 75 Pulse Source Pulse Oximeter Pulse Oximetry (%) 96 Oxygen Delivery Method Room Air Intake Visit Reasons: Physical exam Intake Note: Pt is here today for PE Is last menstrual period known: Yes Last menstrual period: 12/08/22 Allergies No Known Allergies Allergy (Verified 10/05/23 03:24) Medication List - Last Reconciled 12/18/22 by Karuna Manning MD albuterol sulfate 90 mcg/actuation (ProAir HFA) 2 puffs inhalation Q6H PRN fluticasone propion-salmeterol 250-50 mcg/dose (Wixela Inhub) 1 inh inhalation BID Tobacco use date assessed: 12/18/22 HPI Physical exam HPI Details 46 year old lady , here for her physical exam. She has mild intermittent asthma , currently controlled with present medication. Completed h er COVID vaccine including the booster and has had her flu shot, but does not want to get the pneumonia vaccine.. She is up-to-date with cervical cancer screening, done in 2019. Up-to-date with her screening mammogram, due again later this year. [facility] Medical History Chronic heartburn Family history of colon cancer in father Colon cancer screening COVID-19 vaccine series completed Obesity (BMI 30.0-34.9) Mild intermittent asthma Surgical History History of tonsillectomy Family History Father Diabetes mellitus Dyslipidemia Cancer of prostate CVD (cardiovascular disease) HTN (hypertension) Myocardial infarction Colon cancer Mother Dyslipidemia Maternal Grandmother No problems noted. Maternal Grandfather Alzheimer's disease Paternal Grandmother No problems noted. Paternal Grandfather Diabetes mellitus CAD (coronary artery disease) Brother No problems noted. Son No problems noted. Daughter No problems noted. Daughter No problems noted. Daughter No problems noted. 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 1. Little interest or pleasure in doing things: not at all 2. Feeling down, depressed, or hopeless: not at all 3. Trouble falling or staying asleep, or sleeping too much: not at all 4. Feeling tired or having little energy: not at all 5. Poor appetite or overeating: not at all 6. Feeling bad about yourself - or that you are a failure or have let yourself or your family down: not at all 7. Trouble concentrating on things, such as reading the newspaper or watching television: not at all 8. Moving or speaking so slowly that other people could have noticed. Or the opposite - being so fidgety or restless that you have been moving around a lot more than usual: not at all 9. Thoughts that you would be better off or of hurting yourself in some way: not at all Total score: 0 Depression Screening Interpretation: Negative 82704 - PHQ-9 Billing: Yes Source: Developed by Drs. Oz Brunson, Amparo Verdugo, Reinaldo Yeung and colleagues, with an educational lizzy from [employer]. Thrive Questionnaire Declines Thrive assessment: No Date Thrive assessed: 12/18/22 I am a: Patient What is your living situation today?: I have a steady place to live Within the past 12 months, did the food you bought not last and you didn't have the money to get more?: Never true Within the past 12 months, did you worry whether your food would run out before you got money to buy more?: Never true Do you have trouble paying for medicines?: No Do you have trouble getting transportation to medical appointments?: No Do you have trouble paying your heating and electricity bill?: No Do you have trouble taking care of your child, family member or friend?: No Do you have trouble with day-to-day activities such as bathing, preparing meals, shopping, managing finances, etc.?: No Are you currently unemployed and looking for a job?: No Are you interested in more education?: No AUDIT C Alcohol Use Questionnaire (AUDIT-C) 1. How often do you have a drink containing alcohol?: Never Total Score: 0 LIS-7 AMB Questionnaire LIS-7 Date LIS - 7 assessed: 12/18/22 Feeling nervous, anxious, or on edge: 0 = Not at all Not being able to stop or control worryin = Not at all Worrying too much about different things: 0 = Not at all Trouble relaxin = Not at all Being so restless that it is hard to sit still: 0 = Not at all Becoming easily annoyed or irritable: 0 = Not at all Feeling afraid as if something awful might happen: 0 = Not at all Total LIS-7 score (0-4 normal; 5-9 mild; 10-14 moderate; 15-21 severe): 0 Source: Developed by Drs. Oz Brunson, Amparo Verdugo, Reinaldo Yeung and colleagues, with an educational lizzy from [employer]. LIS-7 Assessment Billing LIS-7 Assessment Tool: LIS-7 Assessment 64232 ACT Questionnaire In the past 4 weeks, how much of the time did your asthma keep you from getting as much done at work, school or at home?: None of the time During the past 4 weeks, how often have you had shortness of breath?: 1-2 times a week During the past 4 weeks, how often did your asthma symptoms wake you up at night or earlier than usual in the morning?: Not at all During the past 4 weeks, how often have you had to use your rescue inhaler or nebulizer medication?: Once a week or less How would you rate your asthma control during the past 4 weeks?: Well controlled Score: 22 Review of Systems Const Denies body aches, Denies fatigue, Denies fever(s), Denies headache(s) and Denies weakness Eyes Denies change in vision ENT Denies dizziness, Denies headache(s), Denies nasal congestion, Denies nasal discharge and Denies sore throat Card Denies chest pain, Denies lightheadedness, Denies palpitations and Denies dyspnea Resp Denies chest congestion, Denies cough, Denies dyspnea and Denies wheezing GI Denies abdominal pain, Denies change in bowel habits and Denies heartburn Denies urinary frequency, Denies dysuria and Denies urinary urgency Musc Denies back pain, Denies arthralgias, Denies joint swelling and Denies muscle weakness Skin/Breast Denies lesions and Denies rash Neuro Denies dizziness, Denies headache(s) and Denies weakness Psych Denies anxiety and Denies depression Endo Denies fatigue, Denies polydipsia, Denies polyuria and Denies palpitations Donte/Lymph Denies easy bruising Aller/Immun Denies seasonal rhinorrhea and Denies wheezing Physical exam (Primary Care) Vital Signs: Last Vital Signs Pulse 75 12/18/22 12:40 BP 100/70 12/18/22 12:40 Pulse Ox 96 12/18/22 12:40 Oxygen Delivery Method Room Air 12/18/22 12:40 BMI result Body Mass Index 33.5 Tobacco/Smoking Status: Tobacco use Status Tobacco use date assessed 12/18/22 12/18/22 12:43 Patient Tobacco Use Status Current everyday Tobacco 12/18/22 12:43 e-Cigarette/Vaping Use Never Used 12/18/22 12:43 PHQ-9: PHQ-9 Score PHQ-9: Total score 0 12/20/22 04:57 Depression Screening Interpretation: Negative Thrive Assessment: Date of Thrive Assessment Date Thrive assessed 12/18/22 12/18/22 12:48 Const General: cooperative Nutritional Appearance: obese Orientation/consciousness: patient oriented x3 HENMT Head: Yes normocephalic Ears: hearing grossly normal bilaterally, external ears normal and TM's normal bilaterally General nose exam: Normal external nose present Face and sinus: Yes face symmetric Mouth: Normal oral and palatal mucosa present, oropharynx normal and moist mucous membranes Eyes General: appearance normal, both eyes and all related structures Neck Neck: Yes full ROM, Yes no lymphadenopathy and Yes supple Chest Chest palpation & inspection: normal inspection of the chest Breast/axilla palpation: normal palpation of the breasts Resp Effort & Inspection: normal respiratory effort Auscultation: clear to auscultation bilaterally Cardio Rate: regular rate Rhythm: regular rhythm Heart sounds: S1 normal heart sound present and S2 normal heart sound present GI Palpation (GI): Soft to palpation, nontender, no guarding and no masses General: Yes no CVA tenderness Back/Spine/Pelvis Back: no CVA tenderness and No back tenderness Skin General skin exam: no rashes or lesions noted Neuro General: patient oriented x3, gait normal, tone normal, moves all extremities, Normal light touch and pain sensation, no focal motor deficits and CN's II-XI intact bilaterally Extrem General: Yes full ROM, Yes no joint enlargement, Yes no clubbing, cyanosis or edema and Yes normal gait Psych Appearance: grossly normal Mental Status: mental status grossly normal Speech and movement: Normal speech and movement present Affect: normal affect Attitude: cooperative Thought process: Normal thought process present Thought content: Normal thought content present Assessment and Plan Assessment & Plan (1) Annual visit for general adult medical examination with abnormal findings: Code(s): Z00.01 - Encounter for general adult medical examination with abnormal findings Plan: Will check appropriate labs. Recommended dental visit every 6 months and regular eye exams, at least every 2 years. Take adequate calcium in diet and vitamin-D 3 at 2000 IU per cap once a day, in addition to weight-bearing exercises to help maintain good muscle tone and weight control. Instructed to do self-breast exam, and contain to get yearly mammogram, due again later this year currently up-to-date with her cervical cancer screening done in 2019 due again in 2023. Will refer for screening colonoscopy. (2) Colon cancer screening: Code(s): Z12.11 - Encounter for screening for malignant neoplasm of colon Plan: GI consult obtained for screening colonoscopy (3) Family history of colon cancer in father: Code(s): Z80.0 - Family history of malignant neoplasm of digestive organs Plan: Referred for screening colonoscopy (4) Obesity (BMI 30.0-34.9): Code(s): E66.9 - Obesity, unspecified Plan: Recommended focusing on improving your health instead of dieting. : Eat Mediterranean diet, limit foods high in fat, sugar, and calories, eat slowly, pay attention to portion sizes, plan your meals ahead of time, start regular physical activity 150 minutes of moderate intensity exercise or 90 minutes/week of vigorous exercise and increase water intake. (5) Mild intermittent asthma: Comment: uses Wixela inhaler daily Code(s): J45.20 - Mild intermittent asthma, uncomplicated Qualifiers: Asthma complication type: uncomplicated Qualified Code(s): J45.20 - Mild intermittent asthma, uncomplicated Plan: Asthma stable controlled on present treatment, continue with Wixela inhaler, reminded to gargle after use and has albuterol inhaler to use as needed for episodes of wheezing and bronchospasm . Advised to get pneumonia vaccine , but patient declined getting vaccine at present time. Orders: Orders Basic Metabolic Panel Fasting 12/18/22 Z00.01 - Encounter for general adult medical examination with abnormal findings Lipid Panel 12/18/22 Z00.01 - Encounter for general adult medical examination with abnormal findings Alanine Aminotransferase 12/18/22 Z00.01 - Encounter for general adult medical examination with abnormal findings Aspartate Amino Transferase 12/18/22 Z00.01 - Encounter for general adult medical examination with abnormal findings Vitamin D 25-OH Total 12/18/22 Z00.01 - Encounter for general adult medical examination with abnormal findings Referrals Gastroenterology Referral Z12.11 - Encounter for screening for malignant neopla sm of colon, Z80.0 - Family history of malignant neoplasm of digestive organs, Z00.01 - Encounter for general adult medical examination with abnormal findings, R12 - Heartburn Medications: Refilled fluticasone propion-salmeterol 250-50 mcg/dose (Wixela Inhub) 1 inh inhalation BID 180 ea 5RF Review Patient declined Pneumococcal Vaccine: 12/18/22 Coding Level of Care Code Est Pt Prev Care 40-64y(63876) Diagnoses Annual visit for general adult medical examination with abnormal findings Z00.01 Colon cancer screening Z12.11 Family history of colon cancer in father Z80.0 Obesity (BMI 30.0-34.9) E66.9 Mild intermittent asthma without complication J45.20 Asthma complication type: uncomplicated Additional Codes LIS-7 Assessment Billing - LIS-7 Assessment Tool: LIS-7 Assessment 24358 ([id number])
[2022-12-18 12:40] VITALS: BP 100/70; PULSE 75; O2SAT 96; BMI 33.5
== END 2022-12-18 13:43 | disposition home or self-care (01) ==
LOC: HO.HMGC 12:34
PROVIDERS: PCP Internal Medicine; Visit Provider Internal Medicine
DX: Z00.00 Encounter for general adult medical examination without abnormal findings (principal); E66.9 Obesity, unspecified; Z68.33 Body mass index [BMI] 33.0-33.9, adult; Z12.11 Encounter for screening for malignant neoplasm of colon; Z80.0 Family history of malignant neoplasm of digestive organs; J45.20 Mild intermittent asthma, uncomplicated
CPT/HCPCS: 99396

== ENCOUNTER 2022-12-18 13:18 | Outpatient (REF) | payer OTHER, SELFPAY ==
[2022-12-18 14:58] LABS: Alanine Aminotransferase 18 U/L (0-31); Anion Gap 14 (12-20); Aspartate Amino Transferase 17 U/L (5-31); Blood Urea Nitrogen 10 mg/dL (9-16); Calcium 9.4 mg/dL (8.4-10.2); Carbon Dioxide 24 mmol/L (22-29); Chloride 107 mmol/L (96-108); Cholesterol 213 mg/dL; Estimated Glomerular Filt Rate > 60; Glucose Fasting 84 mg/dL (60-99); HDL Cholesterol 60 mg/dL; LDL Cholesterol Calculated 130 mg/dl; Potassium 4.5 mmol/L (3.3-5.1); Sodium 140 mmol/L (135-145); Triglycerides 119 mg/dL
[2022-12-18 15:14] LABS: Vitamin D 25-OH Total 22.1 ng/mL (>30)
== END 2022-12-18 13:19 | disposition home or self-care (01) ==
LOC: HO.HMGCLDS 13:18
PROVIDERS: PCP Internal Medicine; Visit Provider Internal Medicine
DX: Z00.01 Encounter for general adult medical examination with abnormal findings (principal)
CPT/HCPCS: 36415; 80048; 80061; 82306; 84450; 84460

== ENCOUNTER 2022-12-18 13:58 | Outpatient (REF) | payer OTHER, SELFPAY ==
--- NOTE | ~2022-12-18 | XR_ITS ---
EXAMINATION: XR knee standing BI, XR knee RT 1V CLINICAL INFORMATION: Reason for Exam M25.569 - Pain in unspecified knee COMPARISON: 11/17/2022 TECHNIQUE: Standing view of the bilateral knees and one view of the right knee XR/XR knee RT 1V FINDINGS/IMPRESSION: * No acute fracture or dislocation. * Mild narrowing of the bilateral lateral tibiofemoral compartments and tiny right patellofemoral compartment osteophytes. * No soft tissue abnormality.
--- NOTE | ~2022-12-18 | XR_ITS ---
EXAMINATION: XR knee standing BI, XR knee RT 1V CLINICAL INFORMATION: Reason for Exam M25.569 - Pain in unspecified knee COMPARISON: 11/17/2022 TECHNIQUE: Standing view of the bilateral knees and one view of the right knee XR/XR knee standing BI FINDINGS/IMPRESSION: * No acute fracture or dislocation. * Mild narrowing of the bilateral lateral tibiofemoral compartments and tiny right patellofemoral compartment osteophytes. * No soft tissue abnormality.
== END 2022-12-18 13:59 | disposition home or self-care (01) ==
LOC: HO.HOSX 13:58
PROVIDERS: Visit Provider Physician Assistant
DX: M17.11 Unilateral primary osteoarthritis, right knee (principal)
CPT/HCPCS: 73560; 73565

== ENCOUNTER 2023-04-30 14:45 | Outpatient (REF) | payer OTHER, SELFPAY ==
--- NOTE | ~2023-04-30 | MM_ITS ---
EXAMINATION: MM DIAGNOSTIC DIGITAL BREAST TOMOSYNTHESIS, BILATERAL CLINICAL INFORMATION: Due for yearly. Also follow-up probable benign parenchymal asymmetry mid outer left breast on CC view. The lifetime risk of breast cancer based on the Tyrer-Cuzick Model is 9%. COMPARISON: Multiple prior mammography exams dating back to 02/22/2015. TECHNIQUE: Digital breast tomosynthesis is performed in both the craniocaudal and mediolateral oblique views along with computer-aided detection (CAD). Synthesized 2D images are generated from the tomosynthesis. FINDINGS: There are scattered areas of fibroglandular density (ACR BI-RADS breast composition Category b). Parenchymal pattern is similar to prior exams. There is no developing density or interval architectural abnormality or abnormal calcifications. Right breast unremarkable. The asymmetric parenchyma mid outer left breast on CC view is without significant change, intermittently visible from year to year, likely related to shifting fibroglandular tissue. No architectural distortion. The axilla and skin contours are unremarkable. Results are provided to the patient at time of visit by the technologist. MM/MM tomosynthesis diagnostic BI IMPRESSION: -No significant changes from prior studies. -No architectural abnormality. ASSESSMENT: BI-RADS 3: Probably Benign RECOMMENDATION: Diagnostic mammography at time of next annual exam to complete surveillance, due in 12 months. This patient's information was entered into a reminder system with a target due date for their next mammogram.
== END 2023-04-30 14:46 | disposition home or self-care (01) ==
LOC: HO.MAMMO 14:45
PROVIDERS: PCP Internal Medicine; Visit Provider Internal Medicine
DX: N64.89 Other specified disorders of breast (principal)
CPT/HCPCS: 77062; 77066

== ENCOUNTER 2023-05-14 10:43 | Outpatient (AMB) | payer OTHER, SELFPAY ==
--- NOTE | 2023-05-14 11:17 | A.OFFVIS_ITS ---
Intake Vital Signs 05/14/23 11:19 Height 5 ft 7 in Weight 214 lb 11.684 oz BMI 33.6 BP 112/65 Blood Pressure Location Lt brachial Position Sitting Pulse 72 Intake Visit Reasons: Colonoscopy Screening Intake Note: Ellen presents in office as a new.patient for a colonoscopy screening PT CC: pt reports having no concerns , 1st colo pt denies any other GI Issues Performance Improvement Specialist Required: No Allergies No Known Allergies Allergy (Verified 05/14/23 11:17) HPI Colonoscopy Screening HPI Details 47 year old? female here today for pre colonoscopy screening.? Patient was sent to us by her PCP.? This is her first colonoscopy screening.? Patient denies any gastrointestinal symptoms in the past or at present.? Patient's father was diagnosed with colorectal cancer at age of 70. Metastasized to liver. Denies history of difficulty with sedation or anesthesia in the past.? Negative for history of sleep apnea.? Denies any history of cardiac, renal, pulmonary, or hepatic disease.?? No history of infectious? diseases like hepatitis A, B, C, HIV or tuberculosis.? Patient is not on any anticoagulation therapy. [facility] Medical History Chronic heartburn Colon cancer screening COVID-19 vaccine series completed Family history of colon cancer in father Mild intermittent asthma Obesity (BMI 30.0-34.9) Surgical History History of tonsillectomy Family History Father Diabetes mellitus Dyslipidemia Cancer of prostate CVD (cardiovascular disease) HTN (hypertension) Myocardial infarction Colon cancer Mother Dyslipidemia Maternal Grandmother No problems noted. Maternal Grandfather Alzheimer's disease Paternal Grandmother No problems noted. Paternal Grandfather Diabetes mellitus CAD (coronary artery disease) Brother No problems noted. Son No problems noted. Daughter No problems noted. Daughter No problems noted. Daughter No problems noted. 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 Cognitive needs: No Hearing needs: No Vision needs: No Review of Systems Const Denies weight gain and Denies weight loss ENT Reports no additional complaints, Denies dysphagia and Denies odynophagia Card Reports no additional complaints Resp Reports no additional complaints GI Denies abdominal pain, Denies belching, Denies melena, Denies bloating, Denies change in bowel habits, Denies dysphagia, Denies excessive flatus, Denies dyspepsia, Denies heartburn, Denies diarrhea, Denies loose stools, Denies nausea, Denies odynophagia and Denies vomiting Musc Reports no additional complaints Neuro Reports no additional complaints Psych Reports no additional complaints Endo Reports no additional complaints Physical Exam Vital Signs: Last Vital Signs Pulse 72 05/14/23 11:19 BP 112/65 05/14/23 11:19 BMI result Body Mass Index 33.6 Const General: healthy appearing, no acute distress and well developed Nutritional Appearance: obese Orientation/consciousness: patient oriented x3 HEENT Head: Yes normal to inspection, Yes normocephalic and Yes atraumatic Face and sinus: Yes normal facial exam Mouth: Normal oral and palatal mucosa present Throat: Yes posterior oropharynx normal, Yes tonsils normal and Yes uvula midline Eyes General: appearance normal, both eyes and all related structures Neck Neck: Yes normal visual inspection, Yes full ROM and Yes trachea midline Thyroid: Thyroid normal Resp Effort & Inspection: normal respiratory effort, able to speak in complete sentences, no tracheal deviation and symmetric chest movement Auscultation: clear to auscultation bilaterally Cardio Rate: regular rate Heart sounds: S1 normal heart sound present and S2 normal heart sound present GI Inspection: Yes normal to inspection and No distended Palpation (GI): Soft to palpation, not firm, nontender and No hepatosplenomegaly present Auscultation: normal bowel sounds General: Yes no CVA tenderness Back/Spine/Pelvis Back: no CVA tenderness Skin General skin exam: elasticity normal, turgor normal and dry skin Neuro General: patient oriented x3 Psych Appearance: grossly normal Mental Status: mental status grossly normal Speech and movement: Normal speech and movement present Assessment & Plan Assessment & Plan (1) Colon cancer screening: Code(s): Z12.11 - Encounter for screening for malignant neoplasm of colon Plan: Patient denies any GI, cardiac or respiratory symptoms.? Denies any issues with anesthesia in the past.? Denies any history of sleep apnea.? No history infectious diseases in the past or present.? Not on any anticoagulation therapy.? Patient denies melena, hematochezia, unintentional weight loss or ribbon like stools.? Discussed at length the pre-procedure,? prep, diet & medications as well as what to expect prior, during and after the procedure.?? Stressed the importance of good bowel prep. ?Recommended the use of Vaseline or Calmoseptine OTC & baby wipes with bowel movements to promote comfort.? ?Patient verbalizes understanding and agrees to plan of care.? She was given the opportunity to ask questions and all questions answered.? We will see her after the procedure.? Coding Level of Care Code New Pt Level 3 (83276) Diagnoses Colon cancer screening Z12.11 Time Spent (min) 40 Comment 30 minutes spent with patient and additional 10 minutes spent reviewing her records
[2023-05-14 11:19] VITALS: BP 112/65; PULSE 72; BMI 33.6
== END 2023-05-14 11:47 | disposition home or self-care (01) ==
PROVIDERS: PCP Internal Medicine; Visit Provider Nurse Practitioner Family
DX: Z01.818 Encounter for other preprocedural examination (principal); Z12.11 Encounter for screening for malignant neoplasm of colon
CPT/HCPCS: S0285

== ENCOUNTER → 2023-05-14 10:43 | Outpatient (BNVA) | payer OTHER, SELFPAY | PROVIDERS: PCP Internal Medicine; Visit Provider Nurse Practitioner Family ==

== ENCOUNTER 2024-01-03 09:18 | Outpatient (AMB) | payer OTHER, SELFPAY ==
[2024-01-03 10:29] VITALS: BP 120/74; PULSE 70; TEMP 36.6; O2SAT 97; BMI 32.6
--- NOTE | 2024-01-03 10:29 | MHC.OFFWIV ---
Intake Vital Signs 01/03/24 10:29 Height 5 ft 7 in Weight 208 lb BMI 32.6 BP 120/74 Blood Pressure Location Lt brachial Position Sitting Pulse 70 Pulse Source Pulse Oximeter Temp 97.8 F Temp Source Temporal Artery Scan Pulse Oximetry (%) 97 Oxygen Delivery Method Room Air Intake Visit Reasons: EP RT arm pain (lobby) Intake Note: pt is here today for rt arm pain started 1 month ago Patient Tobacco Use Status: Current everyday Tobacco user Allergies No Known Allergies Allergy (Verified 01/03/24 10:33) Medication List - Last Reconciled 01/03/24 by BHARTI Strickland albuterol sulfate 90 mcg/actuation (ProAir HFA) 2 puffs inhalation Q6H PRN bisacodyl (Dulcolax (bisacodyl)) 10 mg (2 x 5 mg) PO ONCE 1 day budesonide-formoterol 160-4.5 mcg/actuation (Symbicort) 2 puffs inhalation Q12H meloxicam 15 mg PO DAILY 10 days polyethylene glycol 3350 (Miralax) 238 grams PO ONCE Do you need a note to return to daycare/school/sports/work: No HPI HPI Comments History of Present Illness Details 48-year-old female presents today complaining of right shoulder pain for the last month. She denies any injury or trauma to the area. She is right-handed and is quite active with the right upper extremity. She denies any neck pain or prior trauma to her head and neck. Denies any radiating pain or paresthesias into the right upper extremity. [facility] Medical History Chronic heartburn Family history of colon cancer in father Colon cancer screening COVID-19 vaccine series completed Obesity (BMI 30.0-34.9) Mild intermittent asthma Surgical History History of tonsillectomy Family History Father Diabetes mellitus Dyslipidemia Cancer of prostate CVD (cardiovascular disease) HTN (hypertension) Myocardial infarction Colon cancer Mother Dyslipidemia Maternal Grandmother No problems noted. Maternal Grandfather Alzheimer's disease Paternal Grandmother No problems noted. Paternal Grandfather Diabetes mellitus CAD (coronary artery disease) Brother No problems noted. Son No problems noted. Daughter No problems noted. Daughter No problems noted. Daughter No problems noted. 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 Cognitive needs: No Hearing needs: No Vision needs: No Review of Systems Const All systems reviewed & are unremarkable except as noted in HPI and below Physical Exam Vital Signs: Last Vital Signs Temp 97.8 F 01/03/24 10:29 Pulse 70 01/03/24 10:29 BP 120/74 01/03/24 10:29 Pulse Ox 97 01/03/24 10:29 Oxygen Delivery Method Room Air 01/03/24 10:29 BMI result Body Mass Index 32.6 Extrem Right upper extremity: shoulder/upper arm Details: normal to inspection, tenderness Location: of the A-C joint and over the subacromial bursa and abnormal ROM (She does have pain with the extremes the internal and external rotation. It which increases with resistance.) Details: pain with active ROM and pain with passive ROM Results Reviewed Results Reviewed: I did review the negative results of her x-ray of her shoulder today Assessment & Plan Assessment & Plan (1) Right shoulder pain: Code(s): M25.511 - Pain in right shoulder Plan: The patient will try meloxicam for 10 days. If no results will contact Orthopedics to consider a cortisone shot to the shoulder. I also recommended she discuss the option of physical therapy with her PCP. Orders: Orders XR shoulder RT min 2V Today M25.511 - Pain in right shoulder Medications: New meloxicam 15 mg PO DAILY 10 tabs 0RF 10 days Coding Level of Care Code Est Pt Level 3 (78683) Diagnoses Right shoulder pain M25.511
== END 2024-01-03 13:15 | disposition home or self-care (01) ==
PROVIDERS: PCP Internal Medicine; Visit Provider Physician Assistant Medical
DX: M25.511 Pain in right shoulder (principal)
CPT/HCPCS: 99213

== ENCOUNTER 2024-01-03 11:04 | Outpatient (REF) | payer OTHER, SELFPAY ==
--- NOTE | ~2024-01-03 | XR_ITS ---
EXAMINATION: XR SHOULDER, RIGHT CLINICAL INFORMATION: Right shoulder pain. COMPARISON: None available. TECHNIQUE: Three views of the right shoulder. FINDINGS: Glenohumeral and acromioclavicular alignment is anatomic with normal joint space. No displaced fracture or dislocation. No abnormal soft tissue calcifications. XR/XR shoulder RT min 2V IMPRESSION: No acute abnormality.
== END 2024-01-03 11:05 | disposition home or self-care (01) ==
LOC: HO.HMGCX 11:04
PROVIDERS: PCP Internal Medicine; Visit Provider Physician Assistant Medical
DX: M25.511 Pain in right shoulder (principal)
CPT/HCPCS: 73030

== ENCOUNTER 2024-02-11 08:29 | Day surgery (SDC) | payer OTHER, SELFPAY ==
[2024-02-09 09:45] VITALS: BMI 33.6
--- NOTE | 2024-02-10 09:55 | P.CONAN_ITS ---
Documented by User: Elizabeth Robin NP 02/10/24 09:55 HPI - Anesthesia Eval Consult details Narrative: 48yo F for Colonoscopy PMFSH Active Problems Active Problems: All Active Problems Right shoulder pain (Acute) Osteoarthritis of right knee (Acute) Chronic heartburn (Acute) Family history of colon cancer in father (Acute) Colon cancer screening (Acute) Obesity (BMI 30.0-34.9) (Acute) Mild intermittent asthma (Acute) Past Medical History Medical History Chronic heartburn Family history of colon cancer in father Colon cancer screening Obesity (BMI 30.0-34.9) Mild intermittent asthma Family History Family History Father Diabetes mellitus Dyslipidemia Cancer of prostate CVD (cardiovascular disease) HTN (hypertension) Myocardial infarction Colon cancer Mother Dyslipidemia Maternal Grandmother No problems noted. Maternal Grandfather Alzheimer's disease Paternal Grandmother No problems noted. Paternal Grandfather Diabetes mellitus CAD (coronary artery disease) Brother No problems noted. Son No problems noted. Daughter No problems noted. Daughter No problems noted. Daughter No problems noted. 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 Cognitive needs: No Hearing needs: No Vision needs: No Meds Allergies Allergy/AdvReac Type Severity Reaction Status Date / Time No Known Allergies Allergy Verified 02/11/24 09:31 Exam Height,Weight and Vital Signs: Height 5 ft 7 in Weight 97.4 kg Assessment and Plan Assessment Anesthesia Assessment: Chart Reviewed Documented by User: Henny Kaba MD 02/11/24 09:34 COUNTS INCLUDE 234 BEDS AT THE [facility] Past Medical History Medical History Chronic heartburn Family history of colon cancer in father Colon cancer screening Obesity (BMI 30.0-34.9) Mild intermittent asthma Family History Family History Father Diabetes mellitus Dyslipidemia Cancer of prostate CVD (cardiovascular disease) HTN (hypertension) Myocardial infarction Colon cancer Mother Dyslipidemia Maternal Grandmother No problems noted. Maternal Grandfather Alzheimer's disease Paternal Grandmother No problems noted. Paternal Grandfather Diabetes mellitus CAD (coronary artery disease) Brother No problems noted. Son No problems noted. Daughter No problems noted. Daughter No problems noted. Daughter No problems noted. 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 Cognitive needs: No Hearing needs: No Vision needs: No Meds Allergies Allergy/AdvReac Type Severity Reaction Status Date / Time No Known Allergies Allergy Verified 02/11/24 09:31 Exam Airway Mallampati Class: II TM Dist: >3cm Neck ROM: Full Heart: rrr Lungs: cta Assessment and Plan Assessment Anesthesia Assessment: Anesthesia Plan Discussed Final Anesthetic Review Family History of Problems with Anesthesia: No History of Problems with Anesthesia: No NPO: Yes ASA Class: II Final Preanesthetic Review: No Changes in Pt Med Stat, Meds/Allgs Chart Reviewed, Consent Obtained/Reviewed and Anes Risks/Benef Reviewed Patient Risk: Intermediate Procedure Risk: Low Anesthetic Plan Anesthetic Plan: MAC: Disposition: Standard PACU
[2024-02-11 08:58] VITALS: BMI 32.6
--- NOTE | 2024-02-11 09:37 | MHC.SHP ---
Pre-Procedural Eval Section A - 24 Hr Update-Section A only Date of Service: 02/11/24 The patient is an INPATIENT: No The patient has been examined within 24 hours of the surgical procedure. The History & Physical has been completed within 30 days and I have reviewed it.: No Section B - Complete if H&P > 30 days Chief Complaint: Colon cancer screening Relevant Family History (Specify if Yes): Yes Relevant Social History: Tobacco Use Present Medications: see Short Stay Collaborative assessment Medical History: Significant History (Family history of colon cancer in father Mild intermittent asthma Obesity (BMI 30.0-34.9)) History of Previous Operations: Relevant previous surgery/procedure and date(s) (History of tonsillectomy) Allergies: Allergies Allergy/AdvReac Type Severity Reaction Status Date / Time No Known Allergies Allergy Verified 02/11/24 09:31 Review of Systems Sugical H&P ROS: Negative: Constitution, Cardiovascular, Respiratory and Gastrointestinal Exam Surgical H&P Exam: Normal: Heart, Normal: Lungs, Normal: Extremities and Normal: Abdomen Plan Diagnosis/Plan: Unchanged I have reviewed the history and physical and performed a pertinent physical examination on my patient. No changes have occurred unless specified. Time Spent With Patient Time: Total time managing care of this patient today ____ minutes.
[2024-02-11] MEDS: Lactated Ringers 1,000 ML 100 ML IVCONT (09:49)
[2024-02-11 09:52] VITALS: BP 118/69; PULSE 71; RESP 18; TEMP 36.6; O2SAT 97
[2024-02-11 09:56] LABS: UPreg QC Valid YES; Urine Pregnancy NEGATIVE (NEGATIVE)
--- NOTE | 2024-02-11 10:46 | W.PM.OPN ---
Operative Note Operative Note Date of Service: 02/11/24 Narrative: COLONOSCOPY TILL CECUM WITH SNARE POLYPECTOMY SUBMUCOSAL INJECTION AND HEMOCLIP PLACEMENT Pre-op diagnosis: Colon cancer screening (first colonoscopy). Post-op diagnosis:? Colon polyps, Diverticulosis, hemorrhoids Endoscopist:? Ramu Strauss MD Anesthesia:?MAC Consent: Indications for the procedure and potential complications of bleeding, perforation, reaction to medications and missed diagnosis were discussed with the patient and informed consent was obtained. Instrument: Olympus CF H 190 L variable stiffness adult colonoscope Monitoring: Vital signs and clinical assessment, intermittent blood pressure monitoring, continuous EKG monitoring, Pulse oximetry and Carbon Dioxide monitoring were done throughout the procedure. Please see anesthesia flowsheet. Colon withdrawl time was 25 minutes. Procedure: The patient was placed in the left lateral decubitis position and pre-procedure medications were administered. After a digital rectal examination of the ano-rectum, the video colonoscope was inserted into the rectum and advanced through the colon to the cecum. The colonoscope was slowly withdrawn in a retrograde panoramic fashion and the colon mucosa was carefully examined including a retroflexed view of the rectum. Findings and interventions are described below. Procedure Difficulty: without difficulty Findings: Terminal Ileum: Not evaluated Cecum: A 10-12 mm flat polyp raised with 3 cc of Eleview and removed with a hot snare Ascending Colon: Normal Transverse Colon: A 12 - 15 mm flat polyp in the proximal transverse colon. Polyp was raised with 5 cc of Eleview and removed with a hot snare. Polypectomy site was closed with 1 hemoclip and marked by Zulay ink Descending Colon: Moderate diverticulosis Sigmoid Colon: A 10-12 mm sessile polyp - removed with a hot snare. Severe diverticulosis Rectum: A 12 -15 mm sessile polyp - remove removed with a hot snare. Polypectomy site was closed with 1 hemoclip. Ano-rectum: Moderate internal hemorrhoids Colon preparation: Good after copious irrigation. [place] Bowel Preparation Scale Right colon; 2 Transverse colon: 2 Left colon; 2 (0 = Unprepared colon segment with mucosa not seen due to solid stool that cannot be cleared. 1 = Portion of mucosa of the colon segment seen, but other areas of the colon segment not well seen due to staining, residual stool and/or opaque liquid. 2 = Minor amount of residual staining, small fragments of stool and/or opaque liquid, but mucosa of colon segment seen well. 3 = Entire mucosa of colon segment seen well with no residual staining, small fragments of stool or opaque liquid) Impression and Post Procedure Diagnosis: Colonoscopy Findings: Four medium sized polyps were removed Moderate to severe diverticulosis seen in the left colon Moderate hemorrhoids on retroflexed exam. Plan: I will send a letter with pathology results. Repeat Colonoscopy in 3-5 years if polyps are adenomatous and 10 year if polyps are hyperplastic. Above findings were reviewed with the patient and relevant handouts were given and the discharge area.
[2024-02-11 11:42] VITALS: BP 111/64; PULSE 71; RESP 12; TEMP 36.6; O2SAT 96
[2024-02-11 11:55] VITALS: BP 112/73; PULSE 73; RESP 16; TEMP 36.1; O2SAT 98
== END 2024-02-11 12:30 | disposition home or self-care (01) ==
PROVIDERS: Nurse Practitioner; PCP Internal Medicine; Visit Provider Internal Medicine Gastroenterology
PROC: 0DJD8ZZ Inspection of Lower Intestinal Tract, Via Natural or Artificial Opening Endoscopic (ICD-10-PCS; CPT 45378; principal; 2024-02-11 10:30)
DX: Z12.11 Encounter for screening for malignant neoplasm of colon (principal); Z80.0 Family history of malignant neoplasm of digestive organs; D12.0 Benign neoplasm of cecum; K63.5 Polyp of colon; K62.1 Rectal polyp; K57.30 Diverticulosis of large intestine without perforation or abscess without bleeding; K64.8 Other hemorrhoids; R12 Heartburn; J45.20 Mild intermittent asthma, uncomplicated; E66.9 Obesity, unspecified; Z68.33 Body mass index [BMI] 33.0-33.9, adult; Z79.899 Other long term (current) drug therapy
CPT/HCPCS: 45385; 45381; 81025; 88305; J2250; J2704

== ENCOUNTER → 2024-02-11 08:29 | Outpatient (BNV) | payer OTHER, SELFPAY | PROVIDERS: PCP Internal Medicine; Visit Provider Internal Medicine Gastroenterology | DX: Z12.11 Encounter for screening for malignant neoplasm of colon (principal); D12.0 Benign neoplasm of cecum; D12.3 Benign neoplasm of transverse colon; D12.5 Benign neoplasm of sigmoid colon; D12.8 Benign neoplasm of rectum; K57.30 Diverticulosis of large intestine without perforation or abscess without bleeding; K64.8 Other hemorrhoids | CPT/HCPCS: 45381; 45385 ==

== ENCOUNTER 2024-05-29 11:54 | Outpatient (AMB) | payer OTHER, SELFPAY ==
[2024-05-29 12:28] VITALS: BP 122/76; PULSE 72; O2SAT 97; BMI 33.2
--- NOTE | 2024-05-29 12:28 | MHC.PC.OV ---
Vital Signs 05/29/24 12:28 Height 5 ft 7 in Weight 212 lb BMI 33.2 BP 122/76 Blood Pressure Location Lt brachial Position Sitting Pulse 72 Pulse Source Pulse Oximeter Pulse Oximetry (%) 97 Oxygen Delivery Method Room Air Intake Visit Reasons: PE Intake Note: pt is here for PE mammo: 04/30/23 pap: 06/23/19 colon: 02/11/24 Co Op Required: No Accompanied by: Self / Same As Patient Is last menstrual period known: Yes Last menstrual period: 12/08/22 Allergies No Known Allergies Allergy (Verified 05/29/24 13:08) Medication List - Last Reconciled 05/29/24 by Karuna Manning MD albuterol sulfate 90 mcg/actuation 2 puffs inhalation Q6H PRN Breyna 160-4.5 mcg/actuation (budesonide-formoterol) 2 puffs inhalation Q12H NS Tobacco use date assessed: 05/29/24 Dental Screening Dental Screen Date: 05/29/24 Did you have a dental visit in the last 12 months?: Yes Did you have a dental problem in the last 6 months where you did not have access to dental care?: No Was dental information given to patient?: Patient has dentist HPI PE HPI Details 48-year-old lady here today for physical exam. She is up-to-date with her colon cancer screening, had a colonoscopy done earlier this year with Dr. Strauss with removal of 3 hyperplastic polyp and 1 tubular adenoma, due for recheck again in 2028. Last Pap smear was done in 2019 with negative findings, she is now due for her screening mammogram this year. She has mild intermittent asthma currently stable and controlled on current inhalers Up-to-date with her COVID vaccination, gets yearly flu shot, up-to-date with Tdap, but has not yet had her pneumonia vaccination Has been having intermittent episodes of pain sharp in nature in his right upper arm, no history of trauma or strenuous exertion. No accompanying numbness tingling or weakness in affected extremity [facility] Medical History (Updated 05/29/24 @ 13:26 by Karuna Manning MD) Smoker unmotivated to quit Family history of colon cancer in father Colon cancer screening Obesity (BMI 30.0-34.9) Mild intermittent asthma Surgical History Hx laparoscopic cholecystectomy History of tonsillectomy Family History Father Diabetes mellitus Dyslipidemia Cancer of prostate CVD (cardiovascular disease) HTN (hypertension) Myocardial infarction Colon cancer Mother Dyslipidemia Maternal Grandmother No problems noted. Maternal Grandfather Alzheimer's disease Paternal Grandmother No problems noted. Paternal Grandfather Diabetes mellitus CAD (coronary artery disease) Brother No problems noted. Son No problems noted. Daughter No problems noted. Daughter No problems noted. Daughter No problems noted. 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 1. Little interest or pleasure in doing things: not at all 2. Feeling down, depressed, or hopeless: not at all 3. Trouble falling or staying asleep, or sleeping too much: not at all 4. Feeling tired or having little energy: not at all 5. Poor appetite or overeating: not at all 6. Feeling bad about yourself - or that you are a failure or have let yourself or your family down: not at all 7. Trouble concentrating on things, such as reading the newspaper or watching television: not at all 8. Moving or speaking so slowly that other people could have noticed. Or the opposite - being so fidgety or restless that you have been moving around a lot more than usual: not at all 9. Thoughts that you would be better off or of hurting yourself in some way: not at all Total score: 0 Depression Screening Interpretation: Negative Depression Screening Done: Yes 11806 - PHQ-9 Billing: Yes Source: Developed by Drs. Oz Brunson, Amparo BReinaldo Alexandra and colleagues, with an educational lizzy from [employer] Thrive Questionnaire Date Thrive assessed: 05/29/24 I am a: Patient What is your living situation today?: I have a steady place to live Within the past 12 months, did the food you bought not last and you didn't have the money to get more?: Never true Within the past 12 months, did you worry whether your food would run out before you got money to buy more?: Never true Do you have trouble paying for medicines?: No Do you have trouble getting transportation to medical appointments?: No Do you have trouble paying your heating and electricity bill?: No Do you have trouble taking care of your child, family member or friend?: No Do you have trouble with day-to-day activities such as bathing, preparing meals, shopping, managing finances, etc.?: No Are you currently unemployed and looking for a job?: No Are you interested in more education?: No Please select the resources that you would like help with: Housing/Half-Way Currently or been in a relationship where the following occur: No concerns reported THRIVE Score: 0 AUDIT C Alcohol Use Questionnaire (AUDIT-C) 1. How often do you have a drink containing alcohol?: Never 3. How often do you have six or more drinks on one occasion?: Never Total Score: 0 Score Reviewed/Action Taken: Yes LIS-7 AMB Questionnaire LIS-7 Date LIS - 7 assessed: 05/29/24 Feeling nervous, anxious, or on edge: 0 = Not at all Not being able to stop or control worryin = Not at all Worrying too much about different things: 0 = Not at all Trouble relaxin = Not at all Being so restless that it is hard to sit still: 0 = Not at all Becoming easily annoyed or irritable: 0 = Not at all Feeling afraid as if something awful might happen: 0 = Not at all Total LIS-7 score (0-4 normal; 5-9 mild; 10-14 moderate; 15-21 severe): 0 Source: Developed by Drs. Oz Brunson, Reinaldo Rubio and colleagues, with an educational lizzy from [employer] LIS-7 Assessment Billing LIS-7 Assessment Tool: LIS-7 Assessment 38172 Review of Systems Const Denies body aches, Denies fatigue, Denies fever(s), Denies headache(s) and Denies weakness Eyes Denies change in vision ENT Denies dizziness, Denies headache(s), Denies nasal congestion, Denies nasal discharge and Denies sore throat Card Denies chest pain, Denies lightheadedness, Denies palpitations and Denies dyspnea Resp Denies chest congestion, Denies cough, Denies dyspnea and Denies wheezing GI Denies abdominal pain, Denies change in bowel habits and Denies heartburn Denies urinary frequency, Denies dysuria and Denies urinary urgency Musc Denies back pain, Denies arthralgias, Denies joint swelling and Denies muscle weakness Skin/Breast Denies lesions and Denies rash Neuro Denies dizziness, Denies headache(s) and Denies weakness Psych Denies anxiety and Denies depression Endo Denies fatigue, Denies polydipsia, Denies polyuria and Denies palpitations Donte/Lymph Denies easy bruising Aller/Immun Denies seasonal rhinorrhea and Denies wheezing Physical exam (Primary Care) Vital Signs: Last Vital Signs Pulse 72 05/29/24 12:28 BP 122/76 05/29/24 12:28 Pulse Ox 97 05/29/24 12:28 Oxygen Delivery Method Room Air 05/29/24 12:28 BMI result Body Mass Index 33.2 Tobacco/Smoking Status: Tobacco use Status Tobacco use date assessed 05/29/24 05/29/24 12:32 Patient Tobacco Use Status Current everyday Tobacco 05/29/24 12:41 Tobacco use type Cigarette 05/29/24 12:41 e-Cigarette/Vaping Use Never Used 05/29/24 12:29 PHQ-9: PHQ-9 Score PHQ-9: Total score 0 05/29/24 13:10 Depression Screening Interpretation: Negative Thrive Assessment: Date of Thrive Assessment Date Thrive assessed 05/29/24 05/29/24 12:32 Currently or been in a relationship where the following occur: No concerns reported Const General: cooperative Nutritional Appearance: obese Orientation/consciousness: patient oriented x3 HENMT Head: Yes normocephalic Ears: hearing grossly normal bilaterally, external ears normal and TM's normal bilaterally General nose exam: Normal external nose present Face and sinus: Yes face symmetric Mouth: Normal oral and palatal mucosa present, oropharynx normal and moist mucous membranes Eyes General: appearance normal, both eyes and all related structures Neck Neck: Yes full ROM, Yes no lymphadenopathy and Yes supple Chest Chest palpation & inspection: normal inspection of the chest Breast/axilla palpation: normal palpation of the breasts Resp Effort & Inspection: normal respiratory effort Auscultation: clear to auscultation bilaterally Cardio Rate: regular rate Rhythm: regular rhythm Heart sounds: S1 normal heart sound present and S2 normal heart sound present GI Palpation (GI): Soft to palpation, nontender, no guarding and no masses General: Yes no CVA tenderness Back/Spine/Pelvis Back: no CVA tenderness and No back tenderness Skin General skin exam: no rashes or lesions noted Neuro General: patient oriented x3, gait normal, tone normal, moves all extremities, Normal light touch and pain sensation, no focal motor deficits and CN's II-XI intact bilaterally Extrem General: Yes full ROM, Yes no joint enlargement, Yes no clubbing, cyanosis or edema and Yes normal gait Psych Appearance: grossly normal Mental Status: mental status grossly normal Speech and movement: Normal speech and movement present Affect: normal affect Attitude: cooperative Thought process: Normal thought process present Thought content: Normal thought content present Assessment and Plan Assessment & Plan (1) Annual visit for general adult medical examination with abnormal findings: Code(s): Z00.01 - Encounter for general adult medical examination with abnormal findings Plan: Will check appropriate labs. Recommended dental visit every 6 months and regular eye exams, at least every 2 years. Take adequate calcium in diet and vitamin-D 3 at 2000 IU per cap once a day, in addition to weight-bearing exercises to help maintain good muscle tone and weight control. Instructed to do self-breast exam, and recommended to get yearly mammogram, has already an appointment later this year. Patient due for her cervical cancer screening but does not want to get it done today, will schedule it for next year's physical exam. Up-to-date with her screening colonoscopy done earlier this year, with removal of a tubular adenoma, due for recheck [place] [address] Strauss. She is up-to-date with all her COVID vaccination including booster, gets yearly flu shot and up-to-date with Tdap. (2) Mild intermittent asthma: Comment: uses Wixela inhaler daily Code(s): J45.20 - Mild intermittent asthma, uncomplicated Qualifiers: Asthma complication type: uncomplicated Qualified Code(s): J45.20 - Mild intermittent asthma, uncomplicated Plan: Continue with budesonide-formoterol inhaler and uses albuterol inhaler as a rescue. Recommended to get flu shot and pneumonia vaccine but patient declines getting vaccines at present time (3) Obesity (BMI 30.0-34.9): Code(s): E66.9 - Obesity, unspecified Plan: Discussed need to increase activity and weight reduction. Recommended focusing on improving health instead of dieting. Mediterranean diet is a healthy diet that helps, limit food high in fat, sugar, and calories. Eat slowly, pay attention to portion sizes, plan your meals ahead of time, start regular physical activity, at least 150 minutes of moderate intensity exercise, or 90 minutes per week of vigorous exercise. Keeping a food diary, tracking what you eat and your physical activity can help assess what improvements you can make. There are many health problems associated with being overweight/obese, so it is important to improve your diet and exercise. There are medications and surgical options available, but Lifestyle changes are the 1st step. (4) Encounter for screening for diabetes mellitus: Code(s): Z13.1 - Encounter for screening for diabetes mellitus Plan: Will check fasting glucose level (5) Pain of right upper arm: Code(s): M79.621 - Pain in right upper arm Plan: Prescription sent for meloxicam 15 mg per capsule to take 1 twice a day as needed for pain (6) Smoker unmotivated to quit: Code(s): F17.200 - Nicotine dependence, unspecified, uncomplicated Plan: Patient strongly advised to stop smoking, as smoking damages blood vessels, degenerative of joints and spine, damage to lungs and heart., predisposes to developing certain cancers like lung, breast, bladder, colon. Recommended to try decreasing cigarette use by 1-2 cigarettes a day. Advised to monitor what triggers are for smoking so that this can be discussed on the next office visit. We can discuss different options to quit smoking when ready. Orders: Orders Lipid Panel 05/29/24 E66.9 - Obesity, unspecified, J45.20 - Mild intermittent asthma, uncomplicated, M79.621 - Pain in right upper arm, Z00.01 - Encounter for general adult medical examination with abnormal findings, Z13.1 - Encounter for screening for diabetes mellitus, Z13.220 - Encounter for screening for lipoid disorders Hemoglobin and Hematocrit 05/29/24 E66.9 - Obesity, unspecified, J45.20 - Mild intermittent asthma, uncomplicated, M79.621 - Pain in right upper arm, Z00.01 - Encounter for general adult medical examination with abnormal findings, Z13.1 - Encounter for screening for diabetes mellitus, Z13.220 - Encounter for screening for lipoid disorders Alanine Aminotransferase 05/29/24 E66.9 - Obesity, unspecified, J45.20 - Mild intermittent asthma, uncomplicated, M79.621 - Pain in right upper arm, Z00.01 - Encounter for general adult medical examination with abnormal findings, Z13.1 - Encounter for screening for diabetes mellitus, Z13.220 - Encounter for screening for lipoid disorders Aspartate Amino Transferase 05/29/24 E66.9 - Obesity, unspecified, J45.20 - Mild intermittent asthma, uncomplicated, M79.621 - Pain in right upper arm, Z00.01 - Encounter for general adult medical examination with abnormal findings, Z13.1 - Encounter for screening for diabetes mellitus, Z13.220 - Encounter for screening for lipoid disorders Vitamin D 25-OH Total 05/29/24 E66.9 - Obesity, unspecified, J45.20 - Mild intermittent asthma, uncomplicated, M79.621 - Pain in right upper arm, Z00.01 - Encounter for general adult medical examination with abnormal findings, Z13.1 - Encounter for screening for diabetes mellitus, Z13.220 - Encounter for screening for lipoid disorders Basic Metabolic Panel Fasting 05/29/24 E66.9 - Obesity, unspecified, J45.20 - Mild intermittent asthma, uncomplicated, M79.621 - Pain in right upper arm, Z00.01 - Encounter for general adult medical examination with abnormal findings, Z13.1 - Encounter for screening for diabetes mellitus, Z13.220 - Encounter for screening for lipoid disorders Medications: Changed From meloxicam 15 mg PO DAILY 10 days 10 tabs 0RF To meloxicam 15 mg PO DAILY PRN 30 tabs 0RF pain Review Declined Pap Smear: 05/29/24 Patient declined Pneumococcal Vaccine: 05/29/24 Coding Level of Care Code Est Pt Prev Care 40-64y(54492) Diagnoses Annual visit for general adult medical examination with abnormal findings Z00.01 Mild intermittent asthma without complication J45.20 Asthma complication type: uncomplicated Obesity (BMI 30.0-34.9) E66.9 Encounter for screening for diabetes mellitus Z13.1 Pain of right upper arm M79.621 Smoker unmotivated to quit F17.200 Additional Codes LIS-7 Assessment Billing - LIS-7 Assessment Tool: LIS-7 Assessment 50520 ([id number])
== END 2024-05-29 14:22 | disposition home or self-care (01) ==
PROVIDERS: PCP Internal Medicine; Visit Provider Internal Medicine
DX: Z00.00 Encounter for general adult medical examination without abnormal findings (principal); Z68.33 Body mass index [BMI] 33.0-33.9, adult; J45.20 Mild intermittent asthma, uncomplicated; E66.9 Obesity, unspecified; Z13.1 Encounter for screening for diabetes mellitus; M79.621 Pain in right upper arm; F17.200 Nicotine dependence, unspecified, uncomplicated
CPT/HCPCS: 99396

== ENCOUNTER 2024-05-29 13:31 | Outpatient (REF) | payer OTHER, SELFPAY ==
[2024-05-29 16:16] LABS: Hematocrit 47.2 % (37.0-47.0); Hemoglobin 15.5 g/dl (12.0-16.0)
[2024-05-29 16:44] LABS: Alanine Aminotransferase 15 U/L (0-31); Anion Gap 12 (12-20); Aspartate Amino Transferase 17 U/L (5-31); Blood Urea Nitrogen 8 mg/dL (9-16); Calcium 9.6 mg/dL (8.4-10.2); Carbon Dioxide 25 mmol/L (22-29); Chloride 105 mmol/L (96-108); Cholesterol 201 mg/dL (<200); Estimated Glomerular Filt Rate > 60; Glucose Fasting 73 mg/dL (60-99); HDL Cholesterol 58 mg/dL (>40); LDL Cholesterol Calculated 115 mg/dL (<100); Potassium 4.3 mmol/L (3.3-5.1); Sodium 138 mmol/L (135-145); Triglycerides 142 mg/dL (<150)
[2024-05-29 16:49] LABS: Vitamin D 25-OH Total 46.4 ng/mL (>30)
== END 2024-05-29 13:32 | disposition home or self-care (01) ==
LOC: HO.HMGCLDS 13:31
PROVIDERS: PCP Internal Medicine; Visit Provider Internal Medicine
DX: Z00.01 Encounter for general adult medical examination with abnormal findings (principal); Z13.1 Encounter for screening for diabetes mellitus; Z13.220 Encounter for screening for lipoid disorders; M79.621 Pain in right upper arm; E66.9 Obesity, unspecified; J45.20 Mild intermittent asthma, uncomplicated
CPT/HCPCS: 36415; 80048; 80061; 82306; 84450; 84460; 85014; 85018

== ENCOUNTER 2024-06-13 08:32 | Outpatient (AMB) | payer OTHER, SELFPAY ==
--- NOTE | 2024-06-13 08:37 | MHC.OFFWIV ---
Intake Vital Signs 06/13/24 08:38 Height 5 ft 7 in Weight 215 lb BMI 33.7 BP 108/80 Blood Pressure Location Lt brachial Position Sitting Pulse 79 Pulse Source Pulse Oximeter Temp 98.6 F Temp Source Oral Pulse Oximetry (%) 98 Oxygen Delivery Method Room Air Intake Visit Reasons: EP sore throat, ear pain, painful to swallow Intake Note: pt c/o sore throat and ear pain. Painful to swallow. Started Wednesday Patient Tobacco Use Status: Current everyday Tobacco user Allergies No Known Allergies Allergy (Verified 06/13/24 08:38) Do you need a note to return to daycare/school/sports/work: No HPI EP sore throat, ear pain, painful to swallow HPI Details This is a 48 year old female patient who presents to the [place] clinic today with c/o sore throat and b/l ear pain for the last 3-4 days. Denies any known exposure to sick contacts. Denies any fever, chills, respiratory symptoms, GI symptoms, or body aches. Has been doing salt water gargles, throat spray, and Tylenol/Motrin with minimal relief. Home Covid test was negative. COUNT INCLUDES THE [facility] Medical History Smoker unmotivated to quit Family history of colon cancer in father Colon cancer screening Obesity (BMI 30.0-34.9) Mild intermittent asthma Surgical History Hx laparoscopic cholecystectomy History of tonsillectomy Family History Father Diabetes mellitus Dyslipidemia Cancer of prostate CVD (cardiovascular disease) HTN (hypertension) Myocardial infarction Colon cancer Mother Dyslipidemia Maternal Grandmother No problems noted. Maternal Grandfather Alzheimer's disease Paternal Grandmother No problems noted. Paternal Grandfather Diabetes mellitus CAD (coronary artery disease) Brother No problems noted. Son No problems noted. Daughter No problems noted. Daughter No problems noted. Daughter No problems noted. 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 Cognitive needs: No Hearing needs: No Vision needs: No Review of Systems Const All systems reviewed & are unremarkable except as noted in HPI and below Physical Exam Vital Signs: Last Vital Signs Temp 98.6 F 06/13/24 08:38 Pulse 79 06/13/24 08:38 BP 108/80 06/13/24 08:38 Pulse Ox 98 06/13/24 08:38 Oxygen Delivery Method Room Air 06/13/24 08:38 BMI result Body Mass Index 33.7 Const General: cooperative, healthy appearing and no acute distress HEENT Head: Yes normal to inspection and Yes normocephalic Ears: hearing grossly normal bilaterally, external ears normal and TM's normal bilaterally General nose exam: Normal external nose present and Normal nasal mucous membranes and turbinates present Face and sinus: Yes normal facial exam Mouth: Normal oral and palatal mucosa present and moist mucous membranes Throat: Yes posterior oropharynx normal (very mild erythema) and Yes tonsils absent Neck Neck: Yes no lymphadenopathy Resp Effort & Inspection: normal respiratory effort Auscultation: clear to auscultation bilaterally Skin General skin exam: no rashes or lesions noted Extrem General: Yes capillary refill normal and Yes no clubbing, cyanosis or edema Psych Appearance: grossly normal Mental Status: mental status grossly normal Speech and movement: Normal speech and movement present Results AMB Rapid Strep AMB Rapid Strep Negative Last Edit by ILIANA Anderson on 06/13/24 08:51 Assessment & Plan Assessment & Plan (1) Viral pharyngitis: Code(s): J02.9 - Acute pharyngitis, unspecified Plan: Symptoms consistent with a viral pharyngitis. Rapid strep negative. Patient declines any additional viral testing. Post oropharynx appears normal aside from mild erythema. Discussed with patient that illness is likely viral in nature; no abx indicated at this time. Reviewed conservative measures for treatment, including lozenges/drops, salt water gargles, Tylenol/Motrin as needed, increased hydration. Work note provided. If she does not improve with treatment, or if new symptoms develop, she can return for further evaluation. She verbalizes understanding and agrees to plan. Orders: Orders AMB Rapid Strep Screen Today Z13.9 - Encounter for screening, unspecified Coding Level of Care Code Est Pt Level 4 (92272) Diagnoses Viral pharyngitis J02.9
[2024-06-13 08:38] VITALS: BP 108/80; PULSE 79; TEMP 37; O2SAT 98; BMI 33.7
== END 2024-06-13 09:11 | disposition home or self-care (01) ==
PROVIDERS: PCP Internal Medicine; Visit Provider Nurse Practitioner Family
DX: Z13.9 Encounter for screening, unspecified (principal); J02.9 Acute pharyngitis, unspecified
CPT/HCPCS: 87880; 99214

== ENCOUNTER 2024-06-26 12:53 | Outpatient (REF) | payer OTHER, SELFPAY ==
--- NOTE | ~2024-06-26 | MM_ITS ---
EXAMINATION: MM DIAGNOSTIC DIGITAL BREAST TOMOSYNTHESIS, CLINICAL INFORMATION: Two-year follow-up for asymmetry in the lateral left breast on cc view which did not persist on additional imaging projections. COMPARISON: Mammography: Mammography dated by 2021. TECHNIQUE: Digital breast tomosynthesis is performed in both the craniocaudal and mediolateral oblique views along with computer-aided detection (CAD). Synthesized 2D images are generated from the tomosynthesis. FINDINGS: There are scattered areas of fibroglandular density (ACR BI-RADS breast composition Category b). Asymmetry lateral left breast on CC view does not persist on imaging projections and likely represented overlapping breast tissue. There are no significant masses, abnormal calcifications, or other abnormalities. Results are provided to the patient at time of visit by the technologist. MM/MM tomosynthesis diagnostic BI IMPRESSION: No mammographic evidence of malignancy. Recommend return to annual screening. ASSESSMENT: BI-RADS BI-RADS 1 - Negative RECOMMENDATION: 1 year F/U This patient's information was entered into a reminder system with a target due date for their next mammogram. Electronically signed by: Luann Johnson DO 07/21/2024 01:18 PM EDT
== END 2024-06-26 12:54 | disposition home or self-care (01) ==
LOC: HO.MAMMO 12:53
PROVIDERS: PCP Internal Medicine; Visit Provider Internal Medicine
DX: N64.89 Other specified disorders of breast (principal)
CPT/HCPCS: 77062; 77066

== ENCOUNTER → 2024-06-26 13:00 | Outpatient (BNV) | payer OTHER, SELFPAY | PROVIDERS: PCP Internal Medicine; Visit Provider Internal Medicine | DX: N64.89 Other specified disorders of breast (principal) | CPT/HCPCS: 77062; 77066 ==

== ENCOUNTER 2025-06-11 08:54 | Outpatient (REF) | payer OTHER, SELFPAY ==
[2025-06-11 16:01] LABS: CT PCR NOT DETECTED (Not Detect.); NG PCR NOT DETECTED (Not Detect.)
== END 2025-06-11 08:55 | disposition home or self-care (01) ==
LOC: HO.LNP 08:54
PROVIDERS: PCP Internal Medicine; Visit Provider Internal Medicine
DX: Z00.01 Encounter for general adult medical examination with abnormal findings (principal); Z12.4 Encounter for screening for malignant neoplasm of cervix; Z11.51 Encounter for screening for human papillomavirus (HPV); Z20.2 Contact with and (suspected) exposure to infections with a predominantly sexual mode of transmission; J45.20 Mild intermittent asthma, uncomplicated; E66.9 Obesity, unspecified; Z68.32 Body mass index [BMI] 32.0-32.9, adult; M17.11 Unilateral primary osteoarthritis, right knee; F17.200 Nicotine dependence, unspecified, uncomplicated; Z71.3 Dietary counseling and surveillance; Z71.6 Tobacco abuse counseling
CPT/HCPCS: 87491; 87591; 87626; 88175; 96127

== ENCOUNTER 2025-06-11 08:54 | Outpatient (AMB) | payer OTHER, SELFPAY ==
[2025-06-11 09:26] VITALS: BP 112/70; PULSE 70; RESP 16; TEMP 36.8; O2SAT 98; BMI 32.9
--- NOTE | 2025-06-11 09:26 | A.OFFPC_ITS ---
Vital Signs 06/11/25 09:26 Height 5 ft 7 in Weight 210 lb BMI 32.9 BP 112/70 Blood Pressure Location Rt brachial Position Sitting Respiration 16 Pulse 70 Pulse Source Pulse Oximeter Temp 98.2 F Temp Source Oral Pulse Oximetry (%) 98 Oxygen Delivery Method Room Air Intake Visit Reasons: Annual PE Intake Note: Pt is here today for her PE: last mammogram 06/26/24, papsmear 07/07/19 Is last menstrual period known: Yes Last menstrual period: 05/28/25 Allergies No Known Allergies Allergy (Verified 06/11/25 10:06) Medication List - Last Reconciled 06/11/25 by Karuna Manning MD albuterol sulfate 90 mcg/actuation 2 puffs inhalation Q6H PRN Breyna 160-4.5 mcg/actuation (budesonide-formoterol) 2 puffs inhalation Q12H NS Tobacco use date assessed: 06/11/25 Dental Screening Dental Screen Date: 06/11/25 Did you have a dental visit in the last 12 months?: No Did you have a dental problem in the last 6 months where you did not have access to dental care?: No Was dental information given to patient?: Patient declined HPI Annual PE HPI Details - The patient is a 49-year-old female pr esenting for a physical exam. - Colon polyps were removed during a col onoscopy last year, with one polyp identified as precancerous and three as benign. - The patient has a family history of co mira cancer, with her father having from the disease. - The patient also reports a family hist ory of pancreatic cancer, as her maternal grandmother from it in her 90s. - The patient has asthma and uses an inh aler, with a history of using various steroid inhalers. - The patient continues to smoke, acknow ledging it as a risk factor for both pancreatic and colon cancer. - The patient had a mammogram last year and is scheduled for another one next month. - The last Pap smear was conducted in , and the patient is due for another. [facility] Medical History (Updated 06/17/25 @ 18:34 by Karuna Manning MD) History of adenomatous polyp of colon Pneumococcal vaccination declined Smoker unmotivated to quit Family history of colon cancer in father Colon cancer screening Obesity (BMI 30.0-34.9) Mild intermittent asthma Surgical History Hx laparoscopic cholecystectomy History of tonsillectomy Family History Father Diabetes mellitus Dyslipidemia Cancer of prostate CVD (cardiovascular disease) HTN (hypertension) Myocardial infarction Colon cancer Mother Dyslipidemia Maternal Grandmother Pancreatic cancer, Onset Age: 90 Maternal Grandfather Alzheimer's disease Paternal Grandmother No problems noted. Paternal Grandfather Diabetes mellitus CAD (coronary artery disease) Brother No problems noted. Son No problems noted. Daughter No problems noted. Daughter No problems noted. Daughter No problems noted. Social History Housing: House Alcohol intake: never Patient Tobacco Use Status: Current everyday Tobacco user Tobacco use type: Cigarette Cigarettes Per Day: 10 e-Cigarette/Vaping Use: Never Used service: No Current occupational status: employed Current occupation: [employer]/ right hand dominant Cognitive needs: No Hearing needs: No Vision needs: Yes Female Reproductive History Menstrual Date of last menstrual period: 05/28/25 Questionnaire PHQ-9 Over the last 2 weeks, how often have you been bothered by any of the following problems? 1. Little interest or pleasure in doing things: not at all 2. Feeling down, depressed, or hopeless: not at all 3. Trouble falling or staying asleep, or sleeping too much: not at all 4. Feeling tired or having little energy: not at all 5. Poor appetite or overeating: not at all 6. Feeling bad about yourself - or that you are a failure or have let yourself or your family down: not at all 7. Trouble concentrating on things, such as reading the newspaper or watching television: not at all 8. Moving or speaking so slowly that other people could have noticed. Or the opposite - being so fidgety or restless that you have been moving around a lot more than usual: not at all 9. Thoughts that you would be better off or of hurting yourself in some way: not at all Total score: 0 Depression Screening Interpretation: Negative Depression Screening Done: Yes 56848 - PHQ-9 Billing: Yes Source: Developed by Drs. Oz Brunson, Reinaldo Rubio and colleagues, with an educational lizzy from [employer]. Thrive Questionnaire Date Thrive assessed: 06/04/25 I am a: Patient What is your living situation today?: I have a steady place to live Within the past 12 months, did the food you bought not last and you didn't have the money to get more?: Never true Within the past 12 months, did you worry whether your food would run out before you got money to buy more?: Never true Do you have trouble paying for medicines?: No Do you have trouble getting transportation to medical appointments?: No Do you have trouble paying your heating and electricity bill?: No Do you have trouble taking care of your child, family member or friend?: No Do you have trouble with day-to-day activities such as bathing, preparing meals, shopping, managing finances, etc.?: No Are you currently unemployed and looking for a job?: No Are you interested in more education?: No Please select the resources that you would like help with: None Currently or been in a relationship where the following occur: No concerns reported THRIVE Score: 0 AUDIT C Alcohol Use Questionnaire (AUDIT-C) 1. How often do you have a drink containing alcohol?: Never 3. How often do you have six or more drinks on one occasion?: Never Total Score: 0 Score Reviewed/Action Taken: Yes LIS-7 AMB Questionnaire LIS-7 Date LIS - 7 assessed: 06/11/25 Feeling nervous, anxious, or on edge: 0 = Not at all Not being able to stop or control worryin = Not at all Worrying too much about different things: 0 = Not at all Trouble relaxin = Not at all Being so restless that it is hard to sit still: 0 = Not at all Becoming easily annoyed or irritable: 0 = Not at all Feeling afraid as if something awful might happen: 0 = Not at all Total LIS-7 score (0-4 normal; 5-9 mild; 10-14 moderate; 15-21 severe): 0 Source: Developed by Drs. Oz Brunson, Reinaldo Rubio and colleagues, with an educational lizzy from [employer]. LIS-7 Assessment Billing LIS-7 Assessment Tool: LIS-7 Assessment 19397 Review of Systems Const Denies body aches, Denies fatigue, Denies fever(s), Denies headache(s) and Denies weakness Eyes Denies change in vision ENT Denies dizziness, Denies headache(s) and Denies nasal congestion Card Denies chest pain, Denies lightheadedness, Denies palpitations and Denies dyspnea Resp Denies chest congestion, Denies cough, Denies dyspnea and Denies wheezing GI Denies abdominal pain, Denies change in bowel habits and Denies heartburn Denies urinary frequency, Denies dysuria and Denies urinary urgency Musc Denies back pain, Denies arthralgias, Denies joint swelling and Denies muscle weakness Skin/Breast Denies lesions and Denies rash Neuro Denies dizziness, Denies headache(s) and Denies weakness Psych Denies anxiety and Denies depression Endo Denies fatigue, Denies polydipsia, Denies polyuria and Denies palpitations Donte/Lymph Denies easy bruising Aller/Immun Denies seasonal rhinorrhea and Denies wheezing Physical exam (Primary Care) Vital Signs: Last Vital Signs Temp 98.2 F 06/11/25 09:26 Pulse 70 06/11/25 09:26 Resp 16 06/11/25 09:26 BP 112/70 06/11/25 09:26 Pulse Ox 98 06/11/25 09:26 Oxygen Delivery Method Room Air 06/11/25 09:26 BMI result Body Mass Index 32.9 Tobacco/Smoking Status: Tobacco use Status Tobacco use date assessed 06/11/25 06/11/25 09:27 Patient Tobacco Use Status Current everyday Tobacco 06/11/25 09:27 Tobacco use type Cigarette 06/11/25 09:27 e-Cigarette/Vaping Use Never Used 06/11/25 09:27 PHQ-9: PHQ-9 Score PHQ-9: Total score 0 06/11/25 10:36 Depression Screening Interpretation: Negative Thrive Assessment: Date of Thrive Assessment Date Thrive assessed 06/04/25 06/11/25 09:27 Currently or been in a relationship where the following occur: No concerns reported Const General: cooperative Nutritional Appearance: obese Orientation/consciousness: patient oriented x3 HENMT Head: Yes normocephalic Ears: hearing grossly normal bilaterally, external ears normal and TM's normal bilaterally General nose exam: Normal external nose present Face and sinus: Yes face symmetric Mouth: Normal oral and palatal mucosa present, oropharynx normal and moist mucous membranes Eyes General: appearance normal, both eyes and all related structures Neck Neck: Yes full ROM, Yes no lymphadenopathy and Yes supple Chest Chest palpation & inspection: normal inspection of the chest Breast/axilla palpation: normal palpation of the breasts Resp Effort & Inspection: normal respiratory effort Auscultation: clear to auscultation bilaterally Cardio Rate: regular rate Rhythm: regular rhythm Heart sounds: S1 normal heart sound present and S2 normal heart sound present GI Palpation (GI): Soft to palpation, nontender, no guarding and no masses General: Yes no CVA tenderness External Female Exam: normal external appearance Speculum Exam - Vagina: normal appearance of the vagina Speculum Exam - Cervix: normal appearance of the cervix Bimanual exam- vagina & uterus: normal bimanual exam Bimanual Exam- Adnexa, other: normal adnexae, no masses, normal and No adnexal tenderness Back/Spine/Pelvis Back: no CVA tenderness and No back tenderness Skin General skin exam: no rashes or lesions noted Neuro General: patient oriented x3, gait normal, tone normal, moves all extremities, Normal light touch and pain sensation, no focal motor deficits and CN's II-XI intact bilaterally Extrem General: Yes full ROM, Yes no joint enlargement, Yes no clubbing, cyanosis or edema and Yes normal gait Psych Appearance: grossly normal Mental Status: mental status grossly normal Speech and movement: Normal speech and movement present Affect: normal affect Attitude: cooperative Coding Level of Care Code Est Pt Prev Care 40-64y(68528) Diagnoses Annual visit for general adult medical examination with abnormal findings Z00.01 Mild intermittent asthma without complication J45.20 Asthma complication type: uncomplicated Obesity (BMI 30.0-34.9) E66.9 Osteoarthritis of right knee M17.11 Smoker unmotivated to quit F17.200 Screening for malignant neoplasm of cervix Z12.4 Pneumococcal vaccination declined Z28.21 Additional Codes LIS-7 Assessment Billing - LIS-7 Assessment Tool: LIS-7 Assessment 32986 ([id number]) PHQ-9 - 62496 - PHQ-9 Billing: Yes ([id number]) Assessment & Plan Assessment & Plan (1) Annual visit for general adult medical examination with abnormal findings: Code(s): Z00.01 - Encounter for general adult medical examination with abnormal findings (2) Mild intermittent asthma: Comment: uses Wixela inhaler daily Code(s): J45.20 - Mild intermittent asthma, uncomplicated Category: Medical Qualifiers: Asthma complication type: uncomplicated Qualified Code(s): J45.20 - Mild intermittent asthma, uncomplicated (3) Obesity (BMI 30.0-34.9): Code(s): E66.9 - Obesity, unspecified Category: Medical (4) Osteoarthritis of right knee: Code(s): M17.11 - Unilateral primary osteoarthritis, right knee Category: Medical (5) Smoker unmotivated to quit: Code(s): F17.200 - Nicotine dependence, unspecified, uncomplicated Category: Social Hx (6) Screening for malignant neoplasm of cervix: Code(s): Z12.4 - Encounter for screening for malignant neoplasm of cervix (7) Pneumococcal vaccination declined: Code(s): Z28.21 - Immunization not carried out because of patient refusal Category: Medical Plan The patient will continue with routine screenings, including a mammogram scheduled for next month and Pap smear was done on today's visit together with the pelvic exam. . Given the family history of colon cancer and the presence of a precancerous polyp, a follow-up colonoscopy is recommended in three years. The patient is advised to consider smoking cessation due to the increased risk of pancreatic and colon cancer, unmotivated to quit at present time. Declines pneumonia vaccine offered today. Fasting labs ordered as well as STI screening and cervical cancer screening done today. Patient was informed and verbally consented to the use of an ambient scribe for clinic note documentation during this visit. Orders: Orders Comprehensive [place]. Panel Fast 06/11/25 E66.9 - Obesity, unspecified, F17.200 - Nicotine dependence, unspecified, uncomplicated, J45.20 - Mild intermittent asthma, uncomplicated, M17.11 - Unilateral primary osteoarthritis, right knee, Z00.01 - Encounter for general adult medical examination with abnormal findings, Z13.1 - Encounter for screening for diabetes mellitus, Z80.0 - Family history of malignant neoplasm of digestive organs Vitamin D 25-OH Total 06/11/25 E66.9 - Obesity, unspecified, F17.200 - Nicotine dependence, unspecified, uncomplicated, J45.20 - Mild intermittent asthma, uncomplicated, M17.11 - Unilateral primary osteoarthritis, right knee, Z00.01 - Encounter for general adult medical examination with abnormal findings, Z13.1 - Encounter for screening for diabetes mellitus, Z80.0 - Family history of malignant neoplasm of digestive organs Pap Smear 06/11/25 Z12.4 - Encounter for screening for malignant neoplasm of cervix Hemoglobin and Hematocrit 06/11/25 E66.9 - Obesity, unspecified, F17.200 - Nicotine dependence, unspecified, uncomplicated, J45.20 - Mild intermittent asthma, uncomplicated, M17.11 - Unilateral primary osteoarthritis, right knee, Z00.01 - Encounter for general adult medical examination with abnormal findings, Z13.1 - Encounter for screening for diabetes mellitus, Z80.0 - Family history of malignant neoplasm of digestive organs Lipid Panel 06/11/25 E66.9 - Obesity, unspecified, F17.200 - Nicotine dependence, unspecified, uncomplicated, J45.20 - Mild intermittent asthma, uncomplicated, M17.11 - Unilateral primary osteoarthritis, right knee, Z00.01 - Encounter for general adult medical examination with abnormal findings, Z13.1 - Encounter for screening for diabetes mellitus, Z80.0 - Family history of malignant neoplasm of digestive organs CT NG by PCR Vag/Cerv 06/11/25 Z11.3 - Encounter for screening for infections with a predominantly sexual mode of transmission
== END 2025-06-11 10:31 | disposition home or self-care (01) ==
LOC: HO.HMCC 08:55
PROVIDERS: PCP Internal Medicine; Visit Provider Internal Medicine
DX: Z00.01 Encounter for general adult medical examination with abnormal findings (principal); J45.20 Mild intermittent asthma, uncomplicated; E66.9 Obesity, unspecified; Z68.32 Body mass index [BMI] 32.0-32.9, adult; M17.11 Unilateral primary osteoarthritis, right knee; F17.200 Nicotine dependence, unspecified, uncomplicated; Z28.21 Immunization not carried out because of patient refusal

== ENCOUNTER 2025-06-11 10:16 | Outpatient (REF) | payer OTHER, SELFPAY ==
[2025-06-11 13:33] LABS: Hematocrit 48.3 % (37.0-47.0); Hemoglobin 16.0 g/dl (12.0-16.0)
[2025-06-11 13:59] LABS: Alanine Aminotransferase 16 U/L (0-31); Albumin Level 4.5 g/dL (3.5-5.0); Alkaline Phosphatase 74 U/L (39-117); Anion Gap 11 (12-20); Aspartate Amino Transferase 21 U/L (5-31); Blood Urea Nitrogen 7 mg/dL (9-16); Calcium 9.4 mg/dL (8.4-10.2); Carbon Dioxide 27 mmol/L (22-29); Chloride 107 mmol/L (96-108); Cholesterol 211 mg/dL (<200); Estimated Glomerular Filt Rate > 60; HDL Cholesterol 56 mg/dL (>40); Potassium 4.4 mmol/L (3.3-5.1); Sodium 141 mmol/L (135-145); Total Protein 7.1 g/dL (6.5-8.0); Triglycerides 120 mg/dL (<150)
== END 2025-06-11 10:17 | disposition home or self-care (01) ==
LOC: HO.LAB 10:16
PROVIDERS: PCP Internal Medicine; Visit Provider Internal Medicine
DX: Z00.01 Encounter for general adult medical examination with abnormal findings (principal); Z13.1 Encounter for screening for diabetes mellitus; J45.20 Mild intermittent asthma, uncomplicated; M17.11 Unilateral primary osteoarthritis, right knee; F17.200 Nicotine dependence, unspecified, uncomplicated; E66.9 Obesity, unspecified; Z80.0 Family history of malignant neoplasm of digestive organs
CPT/HCPCS: 36415; 80053; 80061; 82306; 85014; 85018

== ENCOUNTER 2025-07-09 10:55 | Outpatient (REF) | payer OTHER, SELFPAY ==
--- NOTE | ~2025-07-09 | MM_ITS ---
EXAMINATION: MM SCREENING DIGITAL BREAST TOMOSYNTHESIS, BILATERAL CLINICAL INFORMATION: Screening. Asymptomatic. COMPARISON: Mammography: Comparison is made with available priors TECHNIQUE: Digital breast mammography with tomosynthesis is performed in both the craniocaudal and mediolateral oblique views along with computer-aided detection (CAD). FINDINGS: There are scattered areas of fibroglandular density (ACR BI-RADS breast composition Category b). There are no significant masses, abnormal calcifications, or other abnormalities. MM/MM tomosynthesis screening BI IMPRESSION: No mammographic evidence of malignancy. ASSESSMENT: BI-RADS BI-RADS 1 - Negative RECOMMENDATION: Routine annual mammography screening. 1 year F/U This examination should not preclude the clinical evaluation of a suspicious palpable abnormality. This patient's information was entered into a reminder system with a target due date for their next mammogram. Electronically signed by: Luann Johnson DO 07/10/2025 04:41 PM EDT
== END 2025-07-09 10:56 | disposition home or self-care (01) ==
LOC: HO.MAMMO 10:55
PROVIDERS: PCP Internal Medicine; Visit Provider Internal Medicine
DX: Z12.31 Encounter for screening mammogram for malignant neoplasm of breast (principal)
CPT/HCPCS: 77063; 77067

== ENCOUNTER → 2025-07-09 11:00 | Outpatient (BNV) | payer OTHER, SELFPAY | PROVIDERS: PCP Internal Medicine; Visit Provider Internal Medicine | DX: Z12.31 Encounter for screening mammogram for malignant neoplasm of breast (principal) | CPT/HCPCS: 77063; 77067 ==

== ENCOUNTER 2025-09-12 14:59 | Emergency (ER) | payer OTHER, SELFPAY ==
--- NOTE | ~2025-09-12 | XR_ITS ---
EXAMINATION: XR LUMBOSACRAL SPINE CLINICAL INFORMATION: Left low back pain radiating down LLE COMPARISON: None available. TECHNIQUE: Three views of the lumbosacral spine. FINDINGS: There are 6 nonrib-bearing lumbar segments. There is mild disc space narrowing with anterior osteophytes in the lower thoracic spine. T12-L1: There is mild disc space narrowing and endplate sclerosis. There are small endplate osteophytes L1-L2: There is mild disc space narrowing and endplate sclerosis. L2-L3: There is mild disc space narrowing L3-L4: There is mild disc space narrowing and endplate osteophytes with endplate sclerosis involving L3. There is subtle retrolisthesis. L4-L5: There is mild facet sclerosis. L5-L6: There is mild grade 1 anterolisthesis with mild to moderate disc space narrowing and endplate osteophytes. There is facet sclerosis and osteophytes. L6-S1: The disc space is preserved. There are posterior osteophytes. There is likely transitional anatomy of the L6 segment. XR/XR lumbar spine 2-3V IMPRESSION: Degenerative disc disease and facet osteoarthritis with a transitional L6 segment. Electronically signed by: Hardeep Campbell MD 09/12/2025 04:19 PM EST
[2025-09-12 15:03] VITALS: BP 132/68; PULSE 83; RESP 18; TEMP 36.7; O2SAT 95; BMI 30.7
--- NOTE | 2025-09-12 15:04 | ED_ITS ---
HPI - General Adult General Chief complaint: General Medical Stated complaint: Knee Leg Pain Time Seen by Provider: 09/12/25 15:26 Source: patient, RN notes reviewed and old records reviewed Mode of arrival: ambulatory Limitations: no limitations History of Present Illness ED Provider: Tami Juarez PA-C HPI narrative: Ellen is an adult female who reports the sudden onset of numbness beginning on Wednesday after a weekend largely spent sitting in a desk chair all weekend I was bored . She denies any associated pain and has not attempted specific treatments. She recalls no acute injury but notes prolonged sitting may have precipitated symptoms. She has no prior history of significant back problems, though a former director [employer] once noted a similar episode in the past. She denies bowel or bladder incontinence, unintentional weight loss, personal history of cancer, IV drug use, or chronic steroid use. 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 No other concerns voiced. No falls or trauma. Numbness is from left buttock down left leg to posterior knee and heel. Related Data Previous Rx's ?Medication ?Instructions ?Recorded Breyna 160 mcg-4.5 mcg/actuation 2 puff inhalation Q12 H 3 months #3 07/30/25 HFA aerosol inhaler inhalers (budesonide-formoterol) albuterol sulfate 90 mcg/actuation 2 puff inhalation Q 6H PRN 09/10/25 aerosol inhaler shortness of breath or wheez ing #8.5 grams gabapentin 100 mg capsule 200 mg (2 x 100 mg) PO BEDTI ME #60 09/17/25 caps Allergies Allergy/AdvReac Type Severity Reaction Status Date / Time No Known Allergies Allergy Verified 09/17/25 15:56 Review of Systems Review of Systems: Yes all other systems are reviewed and are negative PMFSH Past Medical History Attestation statement: The following information was validated with the patient. Source: old records reviewed and nursing notes reviewed Medical History History of adenomatous polyp of colon Pneumococcal vaccination declined Smoker unmotivated to quit Family history of colon cancer in father Colon cancer screening Obesity (BMI 30.0-34.9) Mild intermittent asthma Surgical History Hx laparoscopic cholecystectomy History of tonsillectomy Family History Family History Father Diabetes mellitus Dyslipidemia Cancer of prostate CVD (cardiovascular disease) HTN (hypertension) Myocardial infarction Colon cancer Mother Dyslipidemia Maternal Grandmother Pancreatic cancer, Onset Age: 90 Maternal Grandfather Alzheimer's disease Paternal Grandmother No problems noted. Paternal Grandfather Diabetes mellitus CAD (coronary artery disease) Brother No problems noted. Son No problems noted. Daughter No problems noted. Daughter No problems noted. Daughter No problems noted. Social History Social History Housing: House Alcohol intake: never Patient Tobacco Use Status: Current everyday Tobacco user Tobacco use type: Cigarette Cigarettes Per Day: 10 e-Cigarette/Vaping Use: Never Used service: No Current occupational status: employed Current occupation: [employer]/ right hand dominant Cognitive needs: No Hearing needs: No Vision needs: Yes Physical Exam ED Vital Signs: Vital Signs - 24 hr 09/12/25 15:03 Temperature 98.1 F Pulse Rate 83 Respiratory Rate 18 Blood Pressure 132/68 Pulse Oximetry 95 Oxygen Delivery Method Room Air BMI result Body Mass Index 30.7 GI Other: no pustalite mass Inspection: Yes normal to inspection Palpation (GI): Soft to palpation Rectal Exam - Female: deferred General: Yes no CVA tenderness Back/Spine/Pelvis Back: no CVA tenderness Cervical Spine: normal cervical lordosis and cervical ROM normal Thoracic/Lumbar Spine: thoracic and lumbar spine normal to inspection, thoraco- lumbar ROM normal and straight leg raise negative bilaterally Pelvis: no pain with anterior-posterior compression Skin General skin exam: no rashes or lesions noted Lesions: no lesions Rashes: no rashes Course Course Course Narrative: This is a Rapid Medical Examination (RME) performed by Awa Barrett PA-C in triage. Full HPI, ROS, assessment and treatment plan per primary provider in the Main ED. Hx: 49 yo F here for eval of left low back pain rad down LLE, assoc numbness x4 days. no injury/trauma. Plan: xrs Medical Decision Making Medical Decision Making MDM Narrative: Patient presented to the emergency department today for concerns of paresthesias in left buttock and leg. history and physical as above vitals noted This patient presents with back pain most consistent with pinched nerve. Differential diagnoses includes lumbago versus musculoskeletal spasm / strain versus sciatica. No back pain red flags on history or physical. Presentation not consistent with malignancy (lack of history of malignancy, lack of B symptoms), fracture (no trauma, no bony tenderness to palpation), cauda equina (no bowel or urinary incontinence/retention, no saddle anesthesia, no distal weakness), AAA, viscus perforation , pulmonary embolism, renal colic, pyelonephritis (afebrile, no CVAT, no urinary symptoms). Given the clinical picture, no indication for imaging at this time however this was ordered from triage of the L-spine I do not notice any obvious dislocation or fracture. Emergent MRI imaging not indicated. Plan: pain control, supportive care and ortho follow up as indicated Differential Diagnosis Differential Diagnoses: The differential diagnosis associated with the presentation includes See MDM Admission/Observation Consideration of admission/observation: Escalation of care including admission/observation considered Patient would have been admitted to the hospital had her work up had any findings where hospital admission was appropriate and her clinical presentation warranted hospital admission. Independent Interpretation I performed an independent interpretation of an: Plain X-Ray Interpretation: No fracture or dislocation Radiology Impression Discussion of test interpretation with radiology: I have reviewed the radiologist's reading. Prescription Management I considered prescription management with: Pain Medication no pain Chronic Conditions Patient?s care impacted by: Other Discharge Plan Discharge Clinical Impression: Radiculopathy Patient Disposition: Home, Self-Care Instructions: Lower Back Exercises (ED) Additional Instructions: You were evaluated for low back and leg parethesias Your symptoms are consistent with a pinched nerve without evidence of neurovascular compromise. You had lumbar imaging that did not show any obvious radioopaque mass, dislocation or obvious fracture. BACK CARE if needed. Perform exercises in handout. Use Motrin/Advil (ibuprofen) 600 mg every 6 hours. Take this with food. Take this regularly for the next 3-5 days and then as needed. In addition, You can use Tylenol (acetaminophen) 650 mg every 6 hrs as needed for pain. ?Do not take more than 3000 mg in one day! Use intermittent heat 4 or 5 times a day, 20 minutes at a time, ?for a few days. You may use topical therapy such as IcyHot with Lidocaine or Aspercream with Lidocaine, both of which are available over the counter. Do not perform any heavy lifting. Go immediately to the Emergency Department if you develop any increased or uncontrolled pain, numbness, tingling, or weakness of the extremities, difficulty urinating or passing stools. Please see your doctor or an orthopedist if not improving over the next 1-2 week s. Prescriptions: No Action budesonide-formoterol [Breyna] 160-4.5 mcg/actuation HFA aerosol inhaler 2 puff inhalation Q12H 90 Days Qty: 3 2RF albuterol sulfate 90 mcg/actuation HFA aerosol inhaler 2 puff inhalation Q6H PRN (Reason: shortness of breath or wheezing) Qty: 8.5 2RF gabapentin 100 mg capsule 200 mg PO BEDTIME Qty: 60 0RF Referrals: [facility] [Provider Group] Clinical Impression: Radiculopathy Stand Alone Forms: Work/School Release Interventions: ED Discharge Assessment Last Done: 09/12/25 15:57 Discharge Date/Time: 09/12/25 15:58 Print Language: Macedonian
[2025-09-12 15:57] VITALS: BP 132/68; PULSE 83; RESP 18; TEMP 36.7; O2SAT 95
== END 2025-09-12 15:58 | disposition home or self-care (01) ==
PROVIDERS: Emergency Provider Emergency Medicine; PCP Internal Medicine
DX: M54.16 Radiculopathy, lumbar region (principal); R20.0 Anesthesia of skin; J45.20 Mild intermittent asthma, uncomplicated; F17.200 Nicotine dependence, unspecified, uncomplicated; Z71.6 Tobacco abuse counseling
CPT/HCPCS: 72100; 99283

== ENCOUNTER → 2025-09-12 15:05 | Outpatient (BNV) | payer OTHER, SELFPAY | PROVIDERS: Emergency Provider Emergency Medicine; PCP Internal Medicine; Visit Provider Radiology Diagnostic Radiology | DX: M51.370 Other intervertebral disc degeneration, lumbosacral region with discogenic back pain only (principal); M47.817 Spondylosis without myelopathy or radiculopathy, lumbosacral region | CPT/HCPCS: 72100 ==

== ENCOUNTER 2025-09-17 15:09 | Outpatient (AMB) | payer OTHER, SELFPAY ==
[2025-09-17 15:42] VITALS: BP 118/80; PULSE 69; RESP 16; TEMP 36.7; O2SAT 95; BMI 30.9
--- NOTE | 2025-09-17 15:42 | A.OFFPC_ITS ---
Vital Signs 09/17/25 15:42 Height 5 ft 9 in Weight 209 lb BMI 30.9 BP 118/80 Blood Pressure Location Lt brachial Position Sitting Respiration 16 Pulse 69 Pulse Source Pulse Oximeter Temp 98.0 F Temp Source Oral Pulse Oximetry (%) 95 Oxygen Delivery Method Room Air Intake Visit Reasons: er f/u Intake Note: Pt is here today to f/u [facility] ER: numbness Lt buttock down to Lt leg and Lt lower ext. Director Clinical Applications Required: No Allergies No Known Allergies Allergy (Verified 09/17/25 15:56) Medication List - Last Reconciled 09/17/25 by Karuna Manning MD albuterol sulfate 90 mcg/actuation 2 puffs inhalation Q6H PRN Breyna 160-4.5 mcg/actuation (budesonide-formoterol) 2 puffs inhalation Q12H 3 months NS Tobacco use date assessed: 09/17/25 Dental Screening Dental Screen Date: 09/17/25 Did you have a dental visit in the last 12 months?: Yes Did you have a dental problem in the last 6 months where you did not have access to dental care?: No Was dental information given to patient?: Patient has dentist HPI er f/u HPI Details The patient is a 49-year-old female presenting with numbness in her legs. The symptom began last Wednesday, starting in the left leg and subsequently involving the right foot. She describes the sensation as her leg falling asleep or a constant tingling that extends from her hip area down to her foot. The numbness does not affect her walking, although she does report associated knee pain. The patient reports a change in her bowel habits, noting that she only recognizes the need for a bowel movement by feeling pressure and does not feel the stool come out, but denies incontinence. Recent x-rays revealed lumbar arthritis, significant narrowing, calcium deposits, and a slipped disc at the L5-L6 level, with the L5-S1 level being normal. [facility] Medical History History of adenomatous polyp of colon Pneumococcal vaccination declined Smoker unmotivated to quit Family history of colon cancer in father Colon cancer screening Obesity (BMI 30.0-34.9) Mild intermittent asthma Surgical History Hx laparoscopic cholecystectomy History of tonsillectomy Family History Father Diabetes mellitus Dyslipidemia Cancer of prostate CVD (cardiovascular disease) HTN (hypertension) Myocardial infarction Colon cancer Mother Dyslipidemia Maternal Grandmother Pancreatic cancer, Onset Age: 90 Maternal Grandfather Alzheimer's disease Paternal Grandmother No problems noted. Paternal Grandfather Diabetes mellitus CAD (coronary artery disease) Brother No problems noted. Son No problems noted. Daughter No problems noted. Daughter No problems noted. Daughter No problems noted. 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 1. Little interest or pleasure in doing things: not at all 2. Feeling down, depressed, or hopeless: not at all 3. Trouble falling or staying asleep, or sleeping too much: not at all 4. Feeling tired or having little energy: not at all 5. Poor appetite or overeating: not at all 6. Feeling bad about yourself - or that you are a failure or have let yourself or your family down: not at all 7. Trouble concentrating on things, such as reading the newspaper or watching television: not at all 8. Moving or speaking so slowly that other people could have noticed. Or the opposite - being so fidgety or restless that you have been moving around a lot more than usual: not at all 9. Thoughts that you would be better off or of hurting yourself in some way: not at all Total score: 0 Depression Screening Interpretation: Negative Depression Screening Done: Yes Source: Developed by Drs. Oz Brunson, Amparo Verdugo, Reinaldo Yeung and colleagues, with an educational lizzy from [employer]. Thrive Questionnaire Date Thrive assessed: 06/04/25 I am a: Patient What is your living situation today?: I have a steady place to live Within the past 12 months, did the food you bought not last and you didn't have the money to get more?: Never true Within the past 12 months, did you worry whether your food would run out before you got money to buy more?: Never true Do you have trouble paying for medicines?: No Do you have trouble getting transportation to medical appointments?: No Do you have trouble paying your heating and electricity bill?: No Do you have trouble taking care of your child, family member or friend?: No Do you have trouble with day-to-day activities such as bathing, preparing meals, shopping, managing finances, etc.?: No Are you currently unemployed and looking for a job?: No Are you interested in more education?: No Please select the resources that you would like help with: None Currently or been in a relationship where the following occur: No concerns reported THRIVE Score: 0 AUDIT C Alcohol Use Questionnaire (AUDIT-C) 1. How often do you have a drink containing alcohol?: Never 3. How often do you have six or more drinks on one occasion?: Never Total Score: 0 LIS-7 AMB Questionnaire LIS-7 Date LIS - 7 assessed: 06/11/25 Feeling nervous, anxious, or on edge: 0 = Not at all Not being able to stop or control worryin = Not at all Worrying too much about different things: 0 = Not at all Trouble relaxin = Not at all Being so restless that it is hard to sit still: 0 = Not at all Becoming easily annoyed or irritable: 0 = Not at all Feeling afraid as if something awful might happen: 0 = Not at all Total LIS-7 score (0-4 normal; 5-9 mild; 10-14 moderate; 15-21 severe): 0 Source: Developed by Drs. Oz Brunson, Amparo Verdugo, Reinaldo Yeung and colleagues, with an educational lizzy from [employer]. Review of Systems Const All systems reviewed & are unremarkable except as noted in HPI and below Physical exam (Primary Care) Vital Signs: Last Vital Signs Temp 98.0 F 09/17/25 15:42 Pulse 69 09/17/25 15:42 Resp 16 09/17/25 15:42 BP 118/80 09/17/25 15:42 Pulse Ox 95 09/17/25 15:42 Oxygen Delivery Method Room Air 09/17/25 15:42 BMI result Body Mass Index 30.9 Tobacco/Smoking Status: Tobacco use Status Tobacco use date assessed 09/17/25 09/17/25 15:49 Patient Tobacco Use Status Current everyday Tobacco 09/17/25 15:49 Tobacco use type Cigarette 09/17/25 15:49 e-Cigarette/Vaping Use Never Used 09/17/25 15:49 PHQ-9: PHQ-9 Score PHQ-9: Total score 0 09/17/25 16:06 Depression Screening Interpretation: Negative Thrive Assessment: Date of Thrive Assessment Date Thrive assessed 06/04/25 09/17/25 15:49 Currently or been in a relationship where the following occur: No concerns reported Const General: cooperative Nutritional Appearance: obese Orientation/consciousness: patient oriented x3 HENMT Ears: external ears normal Face and sinus: Yes face symmetric Mouth: moist mucous membranes Eyes General: appearance normal, both eyes and all related structures Neck Neck: Yes full ROM, Yes no lymphadenopathy and Yes supple Resp Effort & Inspection: normal respiratory effort Auscultation: clear to auscultation bilaterally Cardio Rate: regular rate Rhythm: regular rhythm Heart sounds: S1 normal heart sound present and S2 normal heart sound present GI Palpation (GI): Soft to palpation, nontender, no guarding and no masses Back/Spine/Pelvis Back: No back tenderness Skin General skin exam: no rashes or lesions noted Neuro General: patient oriented x3, gait normal, tone normal, moves all extremities, Normal light touch and pain sensation and no focal motor deficits Extrem General: Yes full ROM, Yes no joint enlargement, Yes no clubbing, cyanosis or edema and Yes normal gait Coding Level of Care Code Est Pt Level 4 (72037) Diagnoses Right lumbosacral radiculopathy M54.17 Assessment & Plan Assessment & Plan (1) Right lumbosacral radiculopathy: Code(s): M54.17 - Radiculopathy, lumbosacral region Plan: Start Gabapentin 100 mg capsules. Take one capsule at bedtime. If symptoms do not improve in 1-2 days, increase the dose to 200 mg (two capsules) at bedtime. A prescription for 60 capsules [facility]. Patient was counseled on side effects including dry mouth and drowsiness. -nerve conduction study (NCS) and EMG ordered -Follow up after the nerve conduction study is completed. Patient was informed and verbally consented to the use of an ambient scribe for clinic note documentation during this visit. Orders: Orders NE nerve conduction velocity 09/17/25 M54.17 - Radiculopathy, lumbosacral region NE electromyogram (EMG) 09/17/25 M54.17 - Radiculopathy, lumbosacral region Medications: New gabapentin 200 mg (2 x 100 mg) PO BEDTIME 60 caps 0RF
== END 2025-09-17 16:13 | disposition home or self-care (01) ==
LOC: HO.HMCC 15:10
PROVIDERS: PCP Internal Medicine; Visit Provider Internal Medicine
DX: M54.17 Radiculopathy, lumbosacral region (principal)

== ENCOUNTER 2025-10-09 10:20 | Outpatient (REF) | payer OTHER, SELFPAY ==
--- NOTE | 2025-10-09 10:23 | EMG_ITS ---
Chief complaint: Left lumbosacral radiculopathy Referred by:?Karuna Manning MD Procedure done: Left lower extremity NCS/EMG Left peroneal and tibial motor studies were performed with F responses and tibial H-reflex. Left superficial peroneal and sural sensory studies were performed and paraspinal muscles were tested with a needle. Findings: Tibial amplitude was moderately diminished compared to peroneal with borderline slow conduction velocity. Tibial H-reflex was absent. 1+ fibs were noted in left lower paraspinals and ED B. Impression: Acute left lower lumbar radiculopathy [place] [id number] 1 extremity MTDD
== END 2025-10-09 10:21 | disposition home or self-care (01) ==
LOC: HO.NEURO 10:20
PROVIDERS: PCP Internal Medicine; Visit Provider Internal Medicine
DX: M54.17 Radiculopathy, lumbosacral region (principal)
CPT/HCPCS: 95886; 95909

== ENCOUNTER → 2025-10-09 10:23 | Outpatient (BNV) | payer OTHER, SELFPAY | PROVIDERS: PCP Internal Medicine; Visit Provider Psychiatry & Neurology Neurology | DX: M54.17 Radiculopathy, lumbosacral region (principal) | CPT/HCPCS: 95886; 95908 ==